=== PATIENT | male | born 1965 | race Caucasian/White ===

== ENCOUNTER 2023-09-02 17:47 | Emergency (ER) | payer MEDICAID, SELFPAY ==
[2023-09-02 17:53] VITALS: BP 134/80; PULSE 86; O2SAT 98
[2023-09-02 18:13] VITALS: BP 123/75; PULSE 73; RESP 20; TEMP 36.2; O2SAT 99; BMI 31.1
--- NOTE | 2023-09-02 18:19 | ED_ITS ---
HPI - General Adult General Chief complaint: General Medical Stated complaint: CC covid+ w/ cough Time Seen by Provider: 09/02/23 18:17 Source: patient Mode of arrival: ambulatory Limitations: no limitations History of Present Illness HPI narrative: Diagnosed with COVID last week at [facility]. States that he wants to be tested to see if he still has COVID as he is homeless and he is concerned about the public. He states he is concerned the COVID has settled into his lungs but denies any increased shortness of breath. He reports he is a smoker then he has had an increased cough, however; he denies any fevers, chills, chest pain. Related Data Allergies Allergy/AdvReac Type Severity Reaction Status Date / Time No Known Allergies Allergy Verified 09/02/23 18:17 Review of Systems Review of Systems: Yes all other systems are reviewed and are negative [facility] Social History Social History Advance Directives: No Advance Directives Information Provided: No Physical Exam ED Vital Signs: Vital Signs - 24 hr 09/02/23 18:13 Temperature 97.1 F Pulse Rate 73 Respiratory Rate 20 Blood Pressure 123/75 Pulse Oximetry 99 Oxygen Delivery Method Room Air BMI result Body Mass Index 31.1 Nursing notes and vital signs reviewed. GENERAL APPEARANCE: A&0 x 4, generally well appearing, no acute distress HENMT: Normal to inspection, atraumatic, face symmetrical. Normal external ears, nose, and oropharynx clear. EYE: PERRLA, EOM intact, structures appear normal NECK: Supple without lymphadenopathy. No stiffness or restricted ROM. CHEST: Normal to inspection HEART: Normal rate and regular rhythm, normal S1/S2, no M/R/G LUNGS: LS CTA, moving air well. Able to speak in complete sentences. No crackles, wheezes, or rhonchi auscultated ABDOMEN: Soft, nontender, nondistended. Normal bowel sounds noted BACK: No CVAT, no obvious deformity EXTREMITIES: Moving all extremities without difficulty. No cyanosis, clubbing, or edema. Normal capillary refill. NEUROLOGICAL: Alert and oriented, moving all 4 extremities with equal strength. CN not formally tested but appearing grossly intact. Observed to ambulate with normal gait. Cognition normal SKIN: Warm and dry without any lesions, rash, or visible sores PSYCH: Cooperative, normal affect, normal thought process Medical Decision Making Medical Decision Making MDM Narrative: Patient's symptoms are consistent with an upper respiratory infection with no evidence of pneumonia or sepsis based on HPI and PE. Patient educated that he may still be contagious and that he should remain cautious with good handwashing and wearing a mask when around others especially if he is concerned for others health. Patient is safe for discharge at this time with plan for [id number] Tylenol and/or NSAID such as ibuprofen or naproxen for fever/discomfort with dosing as per packaging. HPI, PE, diagnostics, and plan discussed with patient and family with no unanswered questions at this time. Strict return precautions given to return to the emergency department with new, worsening, or concerning emergent symptoms. Recommended to follow-up with there primary care provider in 24-48 hours for further treatment and management. Differential Diagnosis Differential Diagnoses: The differential diagnosis associated with the presentation includes But not limited to pneumonia, pneumothorax, pleurisy, upper respiratory infection, ACS, sepsis, malignancy Discharge Plan Discharge Clinical Impression: URI (upper respiratory infection) Patient Disposition: Home, Self-Care Instructions: Upper Respiratory Infection (ED) Referrals: [facility] [place] Group] [facility] [place] [facility] [Provider Group] [facility] [place] [facility] [Provider Group] Interventions: ED Discharge Assessment Last Done: 09/02/23 18:32 Discharge Date/Time: 09/02/23 18:58 Print Language: Somali
== END 2023-09-02 18:58 | disposition home or self-care (01) ==
LOC: HO.ED 18:33
PROVIDERS: Emergency Provider Student in an Organized Health Care Education/Training Program
DX: J06.9 Acute upper respiratory infection, unspecified (principal); R05.9 Cough, unspecified
CPT/HCPCS: 99282

== ENCOUNTER 2024-10-06 12:24 | Inpatient (IN) | payer MEDICAID, SELFPAY ==
--- OUTSIDE RECORDS SUMMARY | 2024-10-06 12:55 | XMS_ITS | Encounter Summary ---
Author Organization [employer] Address [address] [place] [address] Care Team Providers Care Bench Molder Name Role Phone Physician, No Pcp Primary Care Provider Unavaila ble Reason for Visit * Reason Comments Mental Health Problem Patient told polic e he was homicidal toward people in general - vague SI and fight with GF [place] Encounter Details Date Type Department Care Team (Late st Contact Info) Description 10/05/2024 9:19 PM EST - 10/06/2024 12:33 PM EST Emergency [facility] Emergency [address] [place] [phone] Melani Pfeiffer MD [address] [place] [address] Branden Stratton MD [address] [address] Suicidal ideation (Primary Dx); Alcohol abuse [facility]charge Disposition[facility] Social History Tobacco Use Types Packs/Day Years Used Date Smoking Tobacco: Every Day Smokeless Tobacco: Never Alcohol Use Standard Drinks/Week Comments Yes 0 (1 standard drink = 0.6 oz pur e alcohol) Sex and Gender Information Value Date Recorded Sex Assigned at Not on file Legal Sex Male 4:33 AM EST Gender Identity Not on file Sexual Orientation Not on file documented as of this encounter Last Filed Vital Signs Vital Sign Reading Time Taken Comments Blood Pressure 138/82 10/06/2024 4:28 AM EST Pulse 86 10/06/2024 4:28 AM EST Temperature 36.6 ??C (97.9 ??F) 10/06/2024 4:28 AM ES T Respiratory Rate 16 10/06/2024 4:28 AM EST Oxygen Saturation 100% 10/06/2024 4:28 AM EST Inhaled Oxygen Concentration - - Weight 83.9 kg (185 lb) 10/05/2024 10:57 PM EST Height 172.7 cm (5' 8 ) 10/05/2024 10:57 PM EST Body Mass Index 28.13 10/05/2024 10:57 PM EST documented in this encounter Functional Status * Are you deaf or do you have serious difficulty hearing? Answer Date of Assessment Author No 10/06/2024 4:16 AM Wiley Srivastava RN * Are you blind or do you have serious difficulty seeing, even when wearing glasses? Answer Date of Assessment Author No 10/06/2024 4:16 AM Coleman Srivastava RN * Do you have serious difficulty walking or climbing stairs? Answer Date of Assessment Author No 10/06/2024 4:16 AM Wiley Srivastava RN * Do you have serious difficulty dressing or bathing? Answer Date of Assessment Author No 10/06/2024 4:16 AM Wiley Srivastava RN * Because of a physical, mental, or emotional condition, do you have serious difficulty doing errandsalone such as visiting the doctor? Answer Date of Assessment Author No 10/06/2024 4:16 AM Wiley Srivastava RN documented as of this encounter Mental Status * Because of a physical, mental, or emotional condition, do you have serious difficulty concentrating, remembering, or making decisions? (5 years old or older) Answer Entry Date Author No 10/06/2024 4:16 AM Wiley Srivastava RN documented in this encounter Discharge Instructions * Discharge Instructions* Branden Stratton MD - 10/06/2024 12:01 PM EST Section 12 * Attachments The following attachments cannot be sent through Care Everywhere. * Suicidal Thoughts (Venezuelan) * Alcohol: Taking Action: Video (Venezuelan) documented in this encounter Medications at Time of Discharge prazosin (MINIPRESS) 2 mg capsule Take 1 capsule (2 mg total) by mouth at bedtime. 09/14/2024 Ventolin HFA 90 mcg/actuation inhaler Inhale 2 puffs by mouth every 4 (four) hours if needed. 08/27/2024 atorvastatin (LIPITOR) 20 mg tablet Take 1 tablet (20 mg total) by mouth at bedtime. QUEtiapine (SEROquel) 100 mg tablet Take 1 tablet (100 mg total) by mouth at bedtime. documented as of this encounter Discharge Disposition Disposition Code Departure Means Destination Comment [facility] documented in this encounter Progress Notes * Ellen Roa RN - 10/06/2024 10:34 AM EST Spoke with [facility] regards to accepting patient. They would like the patient to have an EKG before being accepted. Once EKG is obtained and looks good, they will accept the patient anytime after 1130a. * Kristi Singh - 10/06/2024 10:02 AM EST Patient has been accepted to [facility], unit M3, by Dr Saul Villasenor for today 10/06/24.Time will be determined during nurse to nurse. * KELLIE Worthington - 10/05/2024 8:49 PM EST Emergency Medicine Note Patient Name: Allan Guillen Initial Evaluation: 10/05/2024 : 1965 Patient's PCP: No Pcp Physician Emergency Physician: KELLIE Worthington History of Present Illness Chief Complaint: Chief Complaint Patient presents with Mental Health Problem Patient told police he was homicidal toward people in general - vague SI and fight with GF - drinking at the [place] HPI: 59-year-old male with a history of EtOH abuse and hyperlipidemia presenting for evaluation of vague suicidal ideation. States that he has had an extremely difficult life and has been having thoughts of harming himself though he has no specific plan. He does state that he was drinking earlier, denies any drug use. He is very frustrated because he is trying to get papers from [place] that martín john has been unable to obtain. He has no physical complaints at this time ROS: I have performed a ROS with the pertinent positives and negatives documented in the history ofpresent illness. Previous History Past Medical History: Diagnosis Date ETOH abuse DX:ETOH abuse No past surgical history on file. Social History Tobacco Use Smoking status: Every Day Smokeless tobacco: Never Substance Use Topics Alcohol use: Yes No family history on file. has No Known Allergies. No current facility-administered medications on file prior to encounter. Current Outpatient Medications on File Prior to Encounter Medication Sig Dispense Refill prazosin (MINIPRESS) 2 mg capsule Take 1 capsule (2 mg total) by mouth at bedtime. Ventolin HFA 90 mcg/actuation inhaler Inhale 2 puffs by mouth every 4 (four) hours if needed. atorvastatin (LIPITOR) 20 mg tablet Take 1 tablet (20 mg total) by mouth at bedtime. QUEtiapine (SEROquel) 100 mg tablet Take 1 tablet (100 mg total) by mouth at bedtime. Physical Exam ED Triage Vitals [10/05/24 2257] Temp Heart Rate Resp BP 36.7 ??C (98 ??F) 93 18 (!) 148/81 SpO2 Temp Source Heart Rate Source Patient Position 100 % Oral Monitor Sitting BP Location FiO2 (%) Right arm -- General: Well-appearing, well nourished, in no acute distress HEENT: Speaking clear full sentences, handling secretions well neck: Supple, full range of motion Chest: No increased respiratory effort or accessory muscle use extremities: Freely moving extremities, ambulating independently without difficulty skin: Warm and dry Neuro: Alert and oriented, no focal deficits Results Labs Reviewed ETHANOL - Abnormal Result Value Ethanol Level 142 (*) ACETAMINOPHEN LEVEL - Abnormal Acetaminophen Level <2.0 (*) SALICYLATE LEVEL - Abnormal Salicylate Level <1.7 (*) CBC WITH AUTO DIFFERENTIAL - Abnormal WBC 5.5 RBC 4.00 (*) Hemoglobin 13.3 (*) Hematocrit 37.9 (*) MCV 94.0 MCH 33.0 (*) MCHC 35.1 RDW 12.5 Platelets 202 MPV 9.5 NRBC 0.0 NRBC Absolute 0.00 Neutrophils Relative 37.6 Lymphocytes Relative 46.8 Monocytes Relative 12.1 Eosinophils Relative 2.7 Basophils Relative 0.4 Immature Granulocytes Relative 0.4 Neutrophils Absolute 2.09 Lymphocytes Absolute 2.59 Monocytes Absolute 0.67 Eosinophils Absolute 0.15 Basophils Absolute 0.02 Immature Granulocytes Absolute 0.02 COMPREHENSIVE METABOLIC PANEL - Normal Sodium 139 Potassium 4.0 Chloride 108 CO2 25 Anion Gap 6 Glucose 92 BUN 19 Creatinine 0.75 eGFR 104 BUN/Creatinine Ratio 25.3 Calcium 9.2 AST (SGOT) 27 ALT (SGPT) 32 Alkaline Phosphatase 96 Total Protein 7.7 Albumin 4.0 Total Bilirubin 0.4 DRUG ABUSE SCREEN 8A PANEL, URINE - Normal Amphetamine Screen, Ur Negative Barbiturate Screen, Ur Negative Benzodiazepine Screen, Ur Negative Cocaine Screen, Ur Negative Opiate Screen, Ur Negative Cannabinoid (THC) Screen, Ur Negative Oxycodone Screen, Ur Negative Fentanyl, Ur Negative Narrative: Assay cutoffs: Amphetamines 1000 ng/mL Barbiturates 200 ng/mL Benzodiazepines 200 ng/mL Cocaine 300 ng/mL Fentanyl 1 ng/mL Opiates 300 ng/mL Oxycodone 100 ng/mL THC 50 ng/mL Semi-quantitative assay for screening purposes only. Unconfirmed screening result should not be used for non-medical purposes. *ALTERNATE METHOD CONFIRMATION DONE UPON REQUEST ONLY* BUPRENORPHINE SCREEN, URINE - Normal Buprenorphine Screen Urine Negative Narrative: Assay cutoff 5 ng/mL Semi-quantitative assay for screening purposes only. Unconfirmed screening result should not be used for non-medical purposes. *ALTERNATE METHOD CONFIRMATION DONE UPON REQUEST ONLY* PHENCYCLIDINE, URINE - Normal PCP Scrn, Ur Negative METHADONE SCREEN, URINE - Normal Methadone Screen, Urine Negative CBC AND DIFFERENTIAL Narrative: The following orders were created for panel order CBC and differential. Procedure Abnormality Status --------- ------ CBC auto differential[[id number]] Abnormal Final result Please view results for these tests on the individual orders. Abnormal Labs Reviewed ETHANOL - Abnormal; Notable for the following components: Result Value Ethanol Level 142 (*) All other components within normal limits ACETAMINOPHEN LEVEL - Abnormal; Notable for the following components: Acetaminophen Level <2.0 (*) All other components within normal limits SALICYLATE LEVEL - Abnormal; Notable for the following components: Salicylate Level <1.7 (*) All other components within normal limits CBC WITH AUTO DIFFERENTIAL - Abnormal; Notable for the following components: RBC 4.00 (*) Hemoglobin 13.3 (*) Hematocrit 37.9 (*) MCH 33.0 (*) All other components within normal limits No orders to display I have discussed the incidental/abnormal imaging and/or lab abnormalities with the patient and haveinstructed them the need for further evaluation and workup with their primary care doctor. I have provided the patient with a paper copy of the abnormality. The laboratory results, imaging results and other diagnostic exam results were reviewed in the EMR. EKG Interpretation Critical Care Time None ? Medical Decision Making Medications - No data to display ED Observation Note Encounter: 10/06/2024 4:22 AM Vital Signs reviewed. Crisis evaluation is pending. No medical complaints at this time. Reviewed all pertinent PMHx, SHx, and patient medication. FMHx: Comments: Patient seen and evaluated, vitals reviewed, labs reviewed and reassuring, patient has nophysical complaints, he is presenting for evaluation of increased depression, racing thoughts and vague suicidal ideation without any formal plan. He is calm and cooperative currently, will remain oncontrol continuous 4-1 observation pending crisis evaluation in the morning. He is medically cleared at this time. Anticipate signout at change of shift approximately 7 AM pending this crisis evaluation. ED Course as of 10/06/24647Oct 06, 2024 06 Patient was evaluated by N in the community, came in on a section 12 as a bed search for inpatient psychiatric placement. [LQ] ED Course User Index [LQ] KELLIE Worthington Clinical Impressions as of 10/06/24 0648 Suicidal ideation Procedures Procedures Diagnosis 1. Suicidal ideation Disposition Data Unavailable ED Prescriptions None Physician Attestation KELLIE Worthington 10/06/24422 KELLIE Worthington 10/06/24422 KELLIE Worthington 10/06/24647 Cosigned by Melani Pfeiffer MD at 10/06/2024 7:41 AM EST documented in this encounter Consult Notes * Inez Bass LCSW - 10/06/2024 6:39 AM ESTAssociated Order(s): IP CONSULT TO POWER TRANSFORMER REPAIRER; IP CONSULT TO POWER TRANSFORMER REPAIRER Patient was assessed in the community by [facility] crisis and found appropriate for Inpatient level of care; evaluation will be faxed upon completion. [facility] will initiate the bed search. documented in this encounter Plan of Treatment Pending Results Name Type Priority Associated Diagnoses Date /Time ECG 12 lead ECG STAT 10/06/2024 10 :50 AM EST documented as of this encounter Procedures Procedure Name Priority Date/Time Associated Diagnosis Comments ECG 12-LEAD STAT 10/06/2024 10:50 AM EST TIGER TOP URINE TUBE Routine 10/05/2024 10:52 PM EST DRUG ABUSE SCREEN 8A PANEL, URINE STAT 10/05/2024 10:52 PM EST BUPRENORPHINE SCREEN, URINE STAT 10/05/2024 10:52 PM EST METHADONE SCREEN, URINE STAT 10/05/2024 10:52 PM EST EXTRA TUBES Routine 10/05/2024 10:52 PM EST CBC WITH AUTO DIFFERENTIAL STAT 10/05/2024 10:52 PM EST PHENCYCLIDINE, URINE STAT 10/05/2024 10:52 PM EST CBC AND DIFFERENTIAL STAT 10/05/2024 10:52 PM EST ETHANOL STAT 10/05/2024 10:52 PM EST ACETAMINOPHEN LEVEL STAT 10/05/2024 1 0:52 PM EST SALICYLATE LEVEL STAT 10/05/2024 10:5 2 PM EST COMPREHENSIVE METABOLIC PANEL STAT 10/05/2024 10:52 PM EST documented in this encounter Results * [place] top urine tube (10/05/2024 10:52 PM EST) [facility] Extra Tube Hold for add-ons. 10/06/2024 1:10 AM EST [facility] Comment:Auto resulted. Urine Urine specimen obtained by clean catch procedure / Unknown Non-blood Collection / Unknown 10/05/2024 10:52 PM EST 10/05/2024 11:01 PM EST us [facility] URINE ORDERABLES Final Resu lt [facility] [address] [place] [address], [place] [phone] * (ABNORMAL) CBC auto differential (10/05/2024 10:52 PM EST) [facility] WBC 5.5 4.8 - 10.8 K/mcL LAB HEMETOLOGY METHOD 10/05/2024 11:05 PM [facility] RBC 4.00(L) 4.50 - 5.50 M/mcL LAB HEMETOLOGY METHOD 10/05/2024 11:05 PM [facility] Hemoglobin 13.3(L) 13.5 - 17.5 g/dL LAB HEMETOLOGY METHOD 10/05/2024 11:05 PM [facility] Hematocrit 37.9(L) 42.0 - 54.0 % LAB HEMETOLOGY METHOD 10/05/2024 11:05 PM [facility] MCV 94.0 79.0 - 98.0 FL LAB HEMETOLOGY METHOD 10/05/2024 11:05 PM [facility] MCH 33.0(H) 27.0 - 32.0 pcg LAB HEMETOLOGY METHOD 10/05/2024 11:05 PM [facility] MCHC 35.1 32.0 - 37.0 g/dL LAB HEMETOLOGY METHOD 10/05/2024 11:05 PM [facility] RDW 12.5 11.0 - 15.0 % LAB HEMETOLOGY METHOD 10/05/2024 11:05 PM [facility] Platelets 202 130 - 400 K/mcL LAB HEMETOLOGY METHOD 10/05/2024 11:05 PM [facility] MPV 9.5 7.0 - 11.0 FL LAB HEMETOLOGY METHOD 10/05/2024 11:05 PM [facility] NRBC 0.0 <1.0 % LAB HEMETOLOGY METHOD 10/05/2024 11:05 PM [facility] NRBC Absolute 0.00 <0.10 K/mcL LAB HEMETOLOGY METHOD 10/05/2024 11:05 PM [facility] Neutrophils Relative 37.6 % LAB HEMETOLOGY METHOD 10/05/2024 11:05 PM [facility] Lymphocytes Relative 46.8 % LAB HEMETOLOGY METHOD 10/05/2024 11:05 PM [facility] Monocytes Relative 12.1 % LAB HEMETOLOGY METHOD 10/05/2024 11:05 PM [facility] Eosinophils Relative 2.7 % LAB HEMETOLOGY METHOD 10/05/2024 11:05 PM [facility] Basophils Relative 0.4 % LAB HEMETOLOGY METHOD 10/05/2024 11:05 PM [facility] Immature Granulocytes Relative 0.4 % LAB HEMETOLOGY METHOD 10/05/2024 11:05 PM [facility] Neutrophils Absolute 2.09 1.50 - 7.00 K/mcL LAB HEMETOLOGY METHOD 10/05/2024 11:05 PM [facility] Lymphocytes Absolute 2.59 1.00 - 5.00 K/mcL LAB HEMETOLOGY METHOD 10/05/2024 11:05 PM EST [facility] Monocytes Absolute 0.67 0.20 - 1.00 K/mcL LAB HEMETOLOGY METHOD 10/05/2024 11:05 PM EST [facility] Eosinophils Absolute 0.15 0.00 - 0.50 K/mcL LAB HEMETOLOGY METHOD 10/05/2024 11:05 PM EST [facility] Basophils Absolute 0.02 0.00 - 0.20 K/[facility] LAB HEMETOLOGY METHOD 10/05/2024 11:05 PM [facility] Immature Granulocytes Absolute 0.02 0.00 - 0.03 K/[facility] LAB HEMETOLOGY METHOD 10/05/2024 11:05 PM [facility] Blood Venous blood specimen / Unknown Venipuncture / Unknown 10/05/2024 10:52 PM EST 10/05/2024 11:00 PM EST us [facility] BLOOD ORDERABLES Final Resu lt [facility] [address] [place] [address], * Methadone, urine (10/05/2024 10:52 PM EST) Methadone Screen, Urine Negative Negative LAB CHEMISTRY METHOD 10/05/2024 11:26 PM EST [facility] Comment: Assay cutoff 300 ng/mL Semi-quantitative assay for screening purposes only. Unconfirmed screening result should not be used for non-medical purposes. *ALTERNATE METHOD CONFIRMATION DONE UPON REQUEST ONLY* Urine Urine specimen obtained by clean catch procedure / Unknown Non-blood Collection / Unknown 10/05/2024 10:52 PM EST 10/05/2024 11:00 PM EST us [facility] URINE ORDERABLES Final Resu lt Performing Organization Address City/[facility]/ZIP Co de Phone Number [facility] [address] [place] [address], [place] [phone] * Phencyclidine, urine (10/05/2024 10:52 PM EST) PCP Scrn, Ur Negative Negative LAB CHEMISTRY METHOD 10/05/2024 11:26 PM EST [facility] Comment: Assay cutoff 25 ng/mL Semi-quantitative assay for screening purposes only. Unconfirmed screening result should not be used for non-medical purposes. *ALTERNATE METHOD CONFIRMATION DONE UPON REQUEST ONLY* Urine Urine specimen obtained by clean catch procedure / Unknown Non-blood Collection / Unknown 10/05/2024 10:52 PM EST 10/05/2024 11:00 PM EST us [facility] URINE ORDERABLES Final Resu lt Performing Organization Address [facility] de Phone Number [facility] [address] [place] [address], [place] [phone] * Buprenorphine screen, urine (10/05/2024 10:52 PM EST) Buprenorphine Screen Urine Negative Negative LAB CHEMISTRY METHOD 10/05/2024 11:26 PM EST [facility] Urine Urine specimen obtained by clean catch procedure / Unknown Non-blood Collection / Unknown 10/05/2024 10:52 PM EST 10/05/2024 11:00 PM EST Narrative [facility] - 10/05/2024 11:26 PM EST Assay cutoff 5 ng/mL Semi-quantitative assay for screening purposes only. Unconfirmed screening result should not be used for non-medical purposes. *ALTERNATE METHOD CONFIRMATION DONE UPON REQUEST ONLY* us [facility] URINE ORDERABLES Final Resu lt Performing Organization Address [facility]/ZIP Co de Phone Number [facility] [address] [place] [address], [place] [phone] * Drug abuse screen 8a panel, urine (10/05/2024 10:52 PM EST) [facility] Amphetamine Screen, Ur Negative Negative LAB CHEMISTRY METHOD 10/05/2024 11:26 PM [facility] Comment:Certain OTC medicati ons containing ephedrine, phenylephrine, pseudoephedrine and phenylpropanolamine can cause false positive results. Barbiturate Screen, Ur Negative Negative LAB CHEMISTRY METHOD 10/05/2024 11:26 PM [facility] Benzodiazepine Screen, Ur Negative Negative LAB CHEMISTRY METHOD 10/05/2024 11:26 PM [facility] Cocaine Screen, Ur Negative Negative LAB CHEMISTRY METHOD 10/05/2024 11:26 PM [facility] Opiate Screen, Ur Negative Negative LAB CHEMISTRY METHOD 10/05/2024 11:26 PM [facility] Cannabinoid (THC) Screen, Ur Negative Negative LAB CHEMISTRY METHOD 10/05/2024 11:26 PM [facility] Comment:Specimens from patie nts taking pantoprazole sodium (Protonix) have been shown to produce false positive results. Oxycodone Screen, Ur Negative Negative LAB CHEMISTRY METHOD 10/05/2024 11:26 PM [facility] Fentanyl, Ur Negative Negative LAB CHEMISTRY METHOD 10/05/2024 11:26 PM [facility] Urine Urine specimen obtained by clean catch procedure / Unknown Non-blood Collection / Unknown 10/05/2024 10:52 PM EST 10/05/2024 11:[address] [facility] - 10/05/2024 11:26 PM EST Assay cutoffs: Amphetamines ? 1000 ng/mL Barbiturates ?200 ng/mL Benzodiazepines ?? 200 ng/mL Cocaine ? 300 ng/mL Fentanyl ?1 ng/mL Opiates ? 300 ng/mL Oxycodone ? 100 ng/mL THC ?50 ng/mL Semi-quantitative assay for screening purposes only. Unconfirmed screening result should not be used for non-medical purposes. *ALTERNATE METHOD CONFIRMATION DONE UPON REQUEST ONLY* [facility] URINE ORDERABLES Final Resu lt Performing Organization Address [facility] de Phone Number [facility] [address] [place] [address], * (ABNORMAL) Salicylate level (10/05/2024 10:52 PM EST) Salicylate Level <1.7(L) 2.0 - 29.0 mg/dL LAB CHEMISTRY METHOD 10/05/2024 11:26 PM EST [facility] Blood Venous blood specimen / Unknown Venipuncture / Unknown 10/05/2024 10:52 PM EST 10/05/2024 11:00 PM EST [facility] BLOOD ORDERABLES Final Resu lt Performing Organization Address [facility] Phone Number [facility] [address] [place] [address], * (ABNORMAL) Acetaminophen level (10/05/2024 10:52 PM EST) Acetaminophen Level <2.0(L) 10.0 - 30.0 mcg/mL LAB CHEMISTRY METHOD 10/05/2024 11:30 PM EST [facility] Blood Venous blood specimen / Unknown Venipuncture / Unknown 10/05/2024 10:52 PM EST 10/05/2024 11:00 PM EST [facility] BLOOD ORDERABLES Final Resu lt Performing Organization Address [facility]/ZIP Co de Phone Number [facility] [address] [place] [address], [place] [phone] * (ABNORMAL) Ethanol (10/05/2024 10:52 PM EST) Pathologist [facility] Ethanol Level 142(H) 0 - 10 mg/dL LAB CHEMISTRY METHOD 10/05/2024 11:26 PM EST [facility] Blood Venous blood specimen / Unknown Venipuncture / Unknown 10/05/2024 10:52 PM EST 10/05/2024 11:00 PM EST us [facility] BLOOD ORDERABLES Final Resu lt [facility] [address] [place] [address], [place] [phone] * Comprehensive metabolic panel (10/05/2024 10:52 PM EST) [facility] Sodium 139 133 - 145 mmol/L LAB CHEMISTRY METHOD 10/05/2024 11:26 PM [facility] Potassium 4.0 3.5 - 5.5 mmol/L LAB CHEMISTRY METHOD 10/05/2024 11:26 PM [facility] Chloride 108 96 - 110 mmol/L LAB CHEMISTRY METHOD 10/05/2024 11:26 PM [facility] CO2 25 21 - 32 mmol/L LAB CHEMISTRY METHOD 10/05/2024 11:26 PM [facility] Anion Gap 6 3 - 11 LAB CHEMISTRY METHOD 10/05/2024 11:26 PM [facility] Glucose 92 70 - 100 mg/dL LAB CHEMISTRY METHOD 10/05/2024 11:26 PM [facility] BUN 19 5 - 25 mg/dL LAB CHEMISTRY METHOD 10/05/2024 11:26 PM [facility] Creatinine 0.75 0.70 - 1.30 mg/dL LAB CHEMISTRY METHOD 10/05/2024 11:26 PM [facility] eGFR 104 >=60 mL/min/1. 73m2 LAB CHEMISTRY METHOD 10/05/2024 11:26 PM [facility] Comment:Calculation based on the??Chronic Kidney Disease Epidemiology Collaboration (CKD-EPI) equation refit??without adjustment for race. BUN/Creatinine Ratio 25.3 LAB CHEMISTRY METHOD 10/05/2024 11:26 PM [facility] Calcium 9.2 8.5 - 10.5 mg/dL LAB CHEMISTRY METHOD 10/05/2024 11:26 PM [facility] AST (SGOT) 27 10 - 42 unit/L LAB CHEMISTRY METHOD 10/05/2024 11:26 PM [facility] ALT (SGPT) 32 10 - 60 unit/L LAB CHEMISTRY METHOD 10/05/2024 11:26 PM [facility] Alkaline Phosphatase 96 42 - 121 unit/L LAB CHEMISTRY METHOD 10/05/2024 11:26 PM [facility] Total Protein 7.7 6.0 - 8.0 g/dL LAB CHEMISTRY METHOD 10/05/2024 11:26 PM [facility] Albumin 4.0 3.2 - 5.0 g/dL LAB CHEMISTRY METHOD 10/05/2024 11:26 PM [facility] Total Bilirubin 0.4 0.0 - 1.4 mg/dL LAB CHEMISTRY METHOD 10/05/2024 11:26 PM [facility] Blood Venous blood specimen / Unknown Venipuncture / Unknown 10/05/2024 10:52 PM EST 10/05/2024 11:00 PM EST us [facility] BLOOD ORDERABLES Final Resu lt [facility] [address] [place] [address], documented in this encounter Visit Diagnoses Diagnosis Suicidal ideation- Primary Alcohol abuse Nondependent alcohol abuse, unspecified drinking behavior documented in this encounter Historical Medications * This list may reflect changes made after this encounter. QUEtiapine (SEROquel) 100 mg tablet Take 1 tablet (100 mg total) by mouth at bedtime. prazosin (MINIPRESS) 2 mg capsule Take 1 capsule (2 mg total) by mouth at bedtime. 09/14/2024 atorvastatin (LIPITOR) 20 mg tablet Take 1 tablet (20 mg total) by mouth at bedtime. Ventolin HFA 90 mcg/actuation inhaler Inhale 2 puffs by mouth every 4 (four) hours if needed. 08/27/2024 added in this encounter Orders Diet Count Last Ordered Date First Orde red Date ADULT DIET 1 10/05/2024 Consult Count Last Ordered Date First Orde red Date IP CONSULT TO POWER TRANSFORMER REPAIRER 2 10/06/2024 Precaution Count Last Ordered Date First Orde red Date SUICIDE PRECAUTIONS 1 10/05/2024 Privilege Level Count Last Ordered Date First O rdered Date PATIENT BASTING PULLER 1 10/05/2024 documented in this encounter Care Teams Bench Molder Relationship Specialty Start Date End Date Physician, No Pcp PCP - General 09/04/24 documented as of this encounter
--- OUTSIDE RECORDS SUMMARY | 2024-10-06 12:55 | XMS_ITS | Clinical Summary ---
Author Organization [facility] Address [address] [place] [address] Care Team Providers Care Charter Boat Captain Name Role Phone Harman Stein PARKING REGULATION ENFORCEMENT OFFICER-C Primary Care Provider [phone] Source Comments PLEASE NOTE, if this patient is a minor, it may be UNLAWFUL to discuss sensitive information that is contained in these records (such as FAMILY PLANNING, MENTAL HEALTH or SUBSTANCE ABUSE) with the minor patient's parent or other person without the patient's specific authorization.[facility] Allergies No known active allergies Medications buPROPion SR (WELLBUTRIN SR) 150 mg 12 hr tabletIndications: 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),Tobacco use Take 1 Tablet by mouth 2 (two) times daily 60 Tablet 2 12/24/19 24 Active nicotine, polacrilex, (NICORETTE) 2 mg gumIndications:Tob acco use as needed for cravings - Weeks 1-6: Chew 1 piece of gum every 1-2 hours. Weeks 7-9: Chew 1 piece of gum every 2-4 hours. Weeks 10-12: Chew 1 piece of gum every 4-8 hours. (minimum: 9 pieces/day for first 6 weeks; maximum: 24 pieces/day during entire regimen 110 Each 3 03/28/20 24 Active atorvastatin (LIPITOR) 20 mg tabletIndications: Mixed hyperlipidemia Take 1 Tablet by mouth nightly at bedtime 90 Tablet 1 04/04/20 24 Active risperiDONE (RISPERDAL) 1 mg tablet Take 1 mg by mouth nightly at bedtime 04/28/20 24 Active hydrOXYzine HCL (ATARAX) 50 mg tablet Take 50 mg by mouth 2 (two) times daily as needed 01/17/20 24 Active benztropine (COGENTIN) 0.5 mg tablet Take 0.5 mg by mouth nightly at bedtime 04/28/20 24 Active QUEtiapine (SEROQUEL) 100 mg tabletIndications: Severe episode of recurrent major depressive disorder, 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 90 Capsule 1 03/21/20 24 025 Discontinued Active Problems Problem Noted Date Diagnosed Date Suicidal ideation 06/09/2024 Overview (06/09/2024): 05/19/24 [facility] for alcohol intoxication and SI; cleared for discharge by crisis once sober. 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) (Primary Dx); Alcohol use disorder - Severe; Distressed about housing issues; Insomnia due to other mental disorder; 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) 09/06/2024 Travel 09/05/2024 Interim Notes [address] [phone] Callie Galicia 08/29/2024 Interim Notes [address] [phone] Callie Galicia 08/28/2024 Interim Notes [address] [phone] Callie Galicia 08/24/2024 Travel 08/04/2024 Interim Notes [address] [phone] Callie Galicia 08/03/2024 / INTERIM [address] [phone] Sasha Linares, PMHNP Alcohol use disorder - Severe (Primary Dx); 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) 07/12/2024 1:00 PM EST / Visits [address] [phone] Garrett Short, PARKING REGULATION ENFORCEMENT OFFICER Severe episode of recurrent major depressive disorder, 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) (Primary Dx); Alcohol use disorder - Severe; Distressed about housing issues; Insomnia due to other mental disorder 07/12/2024 Travel 07/10/2024 2:30 PM EST / Visits [address] [phone] Dawn Kyle, RN Deborah Vázquez [place] Alcohol use disorder - Severe (Primary Dx); 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) 07/10/2024 Travel from Last 3 Months Immunizations Name Administration Dates Next Due Flu, Cell Culture based, Multi Dose, 6m+, Flucel vax 09/15/2019 Flu, Preservative Free 08/31/2023,08/27/2020 Moderna COVID-19 Vaccine, re d cap blue label, 12+ Primary Series 12/13/2021 TDAP 12/24/2023 ZOSTER VACCINE, RECOMBINANT (SHINGRIX) Social History Tobacco Use Types Packs/Day Years Used Date Smoking Tobacco: Every Day Cigarettes 1 20.8 Started: 12/24/2003 Passive Smoke Exposure: Never Smokeless Tobacco: Never Tobacco Cessation:Ready to Q uit: Yes; Counseling Given: Yes Alcohol Use Standard Drinks/Week Comments Yes 22 (1 standard drink = 0.6 oz pu re alcohol) almost daily Social Connections Answer Date Recorded Connectedness 2 12/13/2023 Financial Resource Strain Answer Date R ecorded Financial Resource Strain 2 2023 Stress Answer Date Recorded Stress 2 12/13/2023 Physical Activity Answer Date Recorded Physical Activity 0 02/26/2020 Food Insecurity Answer Date Recorded Food 2 12/13/2023 Transportation Needs Answer Date Record ed Transportation 2 12/13/2023 Housing Stability Answer Date Recorded Housing 2 12/13/2023 Safety and Environment Answer Date Andreas rded Safety 1 12/13/2023 Utilities Answer Date Recorded Utilities 2 12/13/2023 Employment Answer Date Recorded Stress 0 12/13/2023 Sex and Gender Information Value Date Recorded Sex Assigned at Male 06/11/2020 3:04 PM PDT Legal Sex Male 7:07 PM PDT Gender Identity Male 06/11/2020 3:04 PM PDT Sexual Orientation Don't know 06/11/2020 3: 04 PM PDT COVID-19 Exposure Response Date Recorded In the last 10 days, have yo u been in contact with someone who was confirmed or suspected to have Coronavirus/COVID-19? Unable to assess 09/06/2024 1:29 PM EST Last Filed Vital Signs Vital Sign Reading Time Taken Comments Blood Pressure 111/70 07/10/2024 2:50 PM EST Pulse 88 07/10/2024 2:50 PM EST Temperature 36.7 ??C (98.1 ??F) 03/28/2024 2:37 PM ED T Respiratory Rate 18 03/28/2024 2:37 PM EDT Oxygen Saturation 96% 03/28/2024 2:37 PM EDT Inhaled Oxygen Concentration - - Weight 86.5 kg (190 lb 9.6 oz) 03/28/2024 2:37 P M EDT Height 162.6 cm (5' 4 ) 07/12/2020 10:07 AM EST Body Mass Index 32.72 07/12/2020 10:07 AM EST Plan of Treatment Upcoming Encounters Date Type Department Care Team (Late st Contact Info) Description 11/23/2024 9:50 AM EDT Interim Notes [facility] [address] [place] [phone] 11/23/2024 10:20 AM EDT Office Visit [facility] [address] [place] [phone] Harman Stein FNP-Minnie [address] [place] [address] 11/23/2024 10:50 AM EDT Interim Notes [facility] [address] [place] [phone] Health Maintenance Due Date Last Done Comments Dental Perio Charting 1965 Imm-Hepatitis A (1 of 2 - Ri sk 2-dose series) 1984 Imm-Hepatitis B (1 of 3 - 19 + 3-dose series) 1984 Imm-Pneumococcal (1 of 2 - PCV) 1984 CT Colonography 2010 Colonoscopy 2010 Colorectal Cancer Screening 2010 FIT/gFOBT 2010 Fecal DNA 2010 Flexible Sigmoidoscopy 2010 Lung Cancer Screening 2015 Imm-Zoster, Recombinant (2 of 2) 02/18/2024 12/24/19 [id number] ( season) 2024 10/30/2023, 12/13/2021, 02/14/2021, Additional history exists Imm-Influenza (#1) 2024 08/31/2023, 0 08/27/2020, 09/15/2019 Alcohol and Drug Screen 08/23/2024 06/16/20 24, 12/24/2023, 06/11/2020 Depression Monitoring 09/16/2024 06/16/2024 , 12/24/2023, 06/11/2020 Annual Preventive Care Visit 12/23/2024 12/24/2023, 06/11/2020 LTBI Screening (#1) 12/23/2024 12/24/2023 Dental BW 02/10/2025 02/09/2024, 05/24, 02/10/2022 Dental Examination 02/10/2025 02/09/2024, 02/10/2022 Dental Prophy 02/10/2025 02/09/2024, 06/14/2023 Diabetes Screening 03/28/2025 03/28/2024, 0 03/28/2024, 12/24/2023, Additional history exists Lipid Screening 03/28/2025 03/28/2024, 05/0 10/2023, 07/12/2020, Additional history exists Tobacco Cessation Counseling (#1) 03/28/2025 024, 12/24/2023 Hypertension Screening (#1) 07/10/2025 Dental FMX/Pano 02/12/2027 02/10/2022 Imm-DTaP/Tdap/Td (2 - Td or Tdap) 12/23/2033 HIV Screening Completed 12/24/2023, 07/12/2020 Hepatitis C Screening Completed 12/24/2023 , 07/12/2020, 07/12/2020, Additional history exists Procedures Procedure Name Priority Date/Time Associated Diagnosis Comments DRUG MONITORING TEMPLATE Routine 07/10/2024 2:50 PM EST DRUG MONITORING, PANEL 8 WITH CONFIRMATION, URINE Routine 07/10/2024 2:50 PM EST Alcohol use disorder - Severe DRUG MONITORING, FENTANYL, WITH CONFIRMATION, URINE Routine 07/10/2024 2:50 PM EST Alcohol use disorder - Severe DRUG MONITORING, BARBITURATES, WITH CONFIRMATION, URINE Routine 07/10/2024 2:50 PM EST Alcohol use disorder - Severe COMPREHENSIVE METABOLIC PANEL Routine 03/28/2024 3:21 PM EDT Alcohol use disorder LIPID PANEL Routine 03/28/2024 3:21 PM EDT Alcohol use disorder BITEWINGS - FOUR RADIOGRAPHIC IMAGES Routine 02/09/2024 1:40 PM EDT Caries Fracture of crown, enamel, and dentin of tooth without pulp exposure Full PROPHYLAXIS - ADULT Routine 02/09/2024 1:40 PM EDT Caries Fracture of crown, enamel, and dentin of tooth without pulp exposure Full PERIODIC ORAL EVALUATION ESTABLISHED PATIENT Routine 02/09/2024 1:40 PM EDT Caries Fracture of crown, enamel, and dentin of tooth without pulp exposure HIV 1/2 AG & AB W/RFLX (4TH GEN) Routine 12/24/2023 2:07 PM EDT Homelessness Alcohol use disorder QUANTIFERON-TB GOLD PLUS Routine 12/24/2023 2:07 PM EDT Homelessness Tobacco use ACUTE HEPATITIS PANEL W/RFLX Routine 12/24/2023 2:07 PM EDT Homelessness Alcohol use disorder INTRAORAL - COMP SERIES OF RADIOGRAPHIC IMAGES Routine 02/10/2022 11:00 AM EDT Gingivitis, chronic, plaque induced from Last 3 Months or Most Recently Relevant to Health Maintenance Results * DRUG MONITORING TEMPLATE (07/10/2024 2:50 PM EST) Notes and Comments See Note Q [employer] Comment: This drug testing is for medical treatment only. Analysis was performed as non-forensic testing and these results should be used only by healthcare providers to render diagnosis or treatment, or to monitor progress of medical conditions. Alcohol Metab Notes: Ethylglucuronide, Ethyl sulfate detected is consistent with exposure to alcohol. LDT Notes: Confirmation tests were developed and their analytical performance characteristics have been determined by [employer]. It has not been cleared or approved by the FDA. This assay has been validated pursuant to the CLIA regulations and is used for clinical purposes. Healthcare Providers needing Interpretation assistance, please contact us at [phone] ( ) M-F, 8am to 10pm EST 07/10/2024 2:50 PM EST 07/11/2024 9:38 AM EST Harman Stein PARKING REGULATION ENFORCEMENT OFFICER-C LAB - NO BLOOD DRAW Edite d Result - Final [employer] [address] [address], [employer] [address] [address] * (ABNORMAL) DRUG MONITORING, PANEL 8 WITH CONFIRMATION, URINE (07/10/2024 2:50 PM EST) AMPHETAMINES NEGATIVE <500 [facility] [employer] [facility] BENZODIAZEPINES NEGATIVE <100 QUES T [employer] [facility] BUPRENORPHINE NEGATIVE <5 [facility] [facility] COCAINE METABOLITE NEGATIVE <150 Q [facility] 6 ACETYLMORPHINE NEGATIVE <[address] [employer] [facility] MARIJUANA METABOLITE NEGATIVE <20 [facility] [employer] [facility] MDMA NEGATIVE <500 [facility] [employer] [facility] OPIATES NEGATIVE <100 [facility] [facility] OXYCODONE NEGATIVE <100 [employer] [facility] CREATININE 74.1 > or = 20.0 mg/dL [employer] [facility] PH 5.4 4.5 - 9.0 [employer] [facility] OXIDANT NEGATIVE <200 [employer] [facility] ALCOHOL METABOLITES POSITIVE(A) <500 [employer] [facility] ETHYL GLUCURONIDE (ETG) >267693(H) <500 ng/mL [employer] [facility] ETHYL SULFATE (ETS) 76,551(H) <100 ng/mL [employer] [facility] Alcohol Metab Comments See Note [employer] [facility] Comment:See Alcohol Metab No rebecca, LDT Notes Urine Urine specimen / Unknown 07/10/2024 2:50 PM EST 07/11/2024 9:38 AM EST [facility] F[facility]-C LAB - NO BLOOD DRAW Edite d Result - Final Performing Organization Address [facility] Co de Phone Number [employer] [address] [address], [employer] [address] [address] * DRUG MONITORING, FENTANYL, WITH CONFIRMATION, URINE (07/10/2024 2:50 PM EST) Fentanyl NEGATIVE <0.5 [facility] [employer] [facility] Urine Urine specimen / Unknown 07/10/2024 2:50 PM EST 07/11/2024 9:38 AM EST [employer] PARKING REGULATION ENFORCEMENT OFFICER-C LAB - NO BLOOD DRAW Edite d Result - Final Performing Organization Address [facility] Co de Phone Number [employer] [address] [address], [place] [facility] [address] [place] [address] * DRUG MONITORING, BARBITURATES, WITH CONFIRMATION, URINE (07/10/2024 2:50 PM EST) BARBITURATES NEGATIVE <300 [facility] [employer] Urine Urine specimen / Unknown 07/10/2024 2:50 PM EST 07/11/2024 9:38 AM EST Harman Stein PARKING REGULATION ENFORCEMENT OFFICER-C LAB - NO BLOOD DRAW Edite d Result - Final [employer] [address] [address], [facility] [address] [place] [address] * (ABNORMAL) LIPID PANEL (03/28/2024 3:21 PM EDT) [facility] CHOLESTEROL, TOTAL 279(H) <200 mg/dL [facility] HDL CHOLESTEROL 64 > OR = 40 mg/dL [employer] TRIGLYCERIDES 336(H) <150 mg/dL [facility] Comment: If a non-fasting specimen was collected, consider repeat triglyceride testing on a fasting specimen if clinically indicated. Brandyn et al. J. of Clin. Lipidol. 2015;9:129-169. LDL-CHOLESTEROL 163(H) 99 mg/dL (calc) [employer] Comment: Reference range: <100 Desirable range <100 mg/dL for primary prevention; ?? <70 mg/dL for patients with CHD or diabetic patients with > or = 2 CHD risk factors. LDL-C is now calculated using the Stephan-Real calculation, which is a validated novel method providing better accuracy than the Friedewald equation in the estimation of LDL-C. Stephan SS et al. KAIA. 2013;310(19): 0648-1183 (http://education.VIOlife/faq/HMC707) CHOL/HDLC RATIO 4.4 <5.0 (calc) [facility] NON-HDL CHOLESTEROL 215(H) <130 mg/dL (calc) [facility] Comment: For patients with diabetes plus 1 major ASCVD risk factor, treating to a non-HDL-C goal of <100 mg/dL (LDL-C of <70 mg/dL) is considered a therapeutic option. Blood Blood / Unknown 03/28/2024 3:21 PM EDT 03/28/2024 3:22 PM EDT Narrative [employer] [facility] - 03/29/2024 4:47 AM EDT FASTING:NO us Harman Douglasri PARKING REGULATION ENFORCEMENT OFFICER-C LAB - BLOOD DRAW Final Re sult [employer] [facility] [address] [address], [employer] [facility] [address] [place] [address] * (ABNORMAL) COMPREHENSIVE METABOLIC PANEL (03/28/2024 3:21 PM EDT) GLUCOSE 82 65 - 139 mg/dL [facility] Comment: ?Non-fasting reference interval UREA NITROGEN (BUN) 14 7 - 25 mg/dL [facility] CREATININE (blood) 0.79 0.70 - 1.30 mg/dL [facility] EGFR 103 > OR = 60 mL/min/1. 73m2 [facility] BUN/CREATININE RATIO SEE NOTE: [facility] Comment: ?? Not Reported: BUN and Creatinine are within ?? reference range. ? SODIUM 139 135 - 146 mmol/L [facility] POTASSIUM 4.2 3.5 - 5.3 mmol/L [facility] CHLORIDE 102 98 - 110 mmol/L [facility] CARBON DIOXIDE 27 20 - 32 mmol/L [facility] CALCIUM 9.7 8.6 - 10.3 mg/dL [facility] PROTEIN, TOTAL 8.2(H) 6.1 - 8.1 g/dL [facility] ALBUMIN 4.9 3.6 - 5.1 g/dL [facility] GLOBULIN 3.3 1.9 - 3.7 g/dL (calc) [facility] ALBUMIN/GLOBULI N RATIO 1.5 1.0 - 2.5 (calc) [facility] BILIRUBIN, TOTAL 0.3 0.2 - 1.2 mg/dL [facility] ALKALINE PHOSPHATASE 100 35 - 144 U/L [facility] AST 23 10 - 35 U/L [employer] [facility] ALT 19 9 - 46 U/L [employer] [facility] Blood Blood / Unknown 03/28/2024 3 :21 PM EDT 03/28/2024 3:22 PM EDT Narrative [facility] [place] [facility] - 03/29/2024 4:47 AM EDT FASTING:NO Marcyforrest Sairta PARKING REGULATION ENFORCEMENT OFFICER-C LAB - BLOOD DRAW Edited R esult - Final [employer] [facility] [address] [address], [employer] [address] [address] * QUANTIFERON-TB GOLD PLUS (12/24/2023 2:07 PM EDT) [facility] QUANTIFERON NEGATIVE NEGATIVE [employer] [facility] Comment: Negative test result. M. tuberculosis complex infection unlikely. NIL 0.02 IU/mL [employer] [facility] MITOGEN-NIL >10.00 IU/mL [employer] [facility] TB1-NIL 0.01 IU/mL [facility] [facility] TB2-NIL 0.01 IU/mL [employer] [facility] Comment: The Nil tube value reflects the background interferon gamma immune response of the patient's blood sample. This value has been subtracted from the patient's displayed TB and Mitogen results. Lower than expected results with the Mitogen tube prevent false-negative Quantiferon readings by detecting a patient with a potential immune suppressive condition and/or suboptimal pre-analytical specimen handling. The TB1 Antigen tube is coated with the M. tuberculosis-specific antigens designed to elicit responses from TB antigen primed CD4+ helper T-lymphocytes. The TB2 Antigen tube is coated with the M. tuberculosis-specific antigens designed to elicit responses from TB antigen primed CD4+ helper and CD8+ cytotoxic T-lymphocytes. For additional information, please refer to https://education.[employer]/faq/QXM428 (This link is being provided for informational/ educational purposes only.) Blood Blood / Unknown 12/24/2023 2 :07 PM EDT 12/24/2023 2:08 PM EDT Narrative [facility] [facility] - 12/29/2023 3:49 PM EDT FASTING:NO Harman Stein PARKING REGULATION ENFORCEMENT OFFICER-C LAB - BLOOD DRAW Final Re sult Performing Organization Address [facility]/ZIP Co de Phone Number [employer] [facility] [address] [address], [employer] [address] [address] * HIV 1/2 AG & AB W/RFLX (4TH GEN) (12/24/2023 2:07 PM EDT) HIV AG/AB, 4TH GEN NON-REAC TIVE NON-REAC TIVE [facility] Comment: HIV-1 antigen and HIV-1/HIV-2 antibodies were not detected. There is no laboratory evidence of HIV infection. PLEASE NOTE: This information has been disclosed to you from records whose confidentiality may be protected by state law. ??If your state requires such protection, then the state law prohibits you from making any further disclosure of the information without the specific written consent of the person to whom it pertains, or as otherwise permitted by law. A general authorization for the release of medical or other information is NOT sufficient for this purpose. ?? For additional information please refer to http://education.[employer]/faq/VRL328 (This link is being provided for informational/ educational purposes only.) The performance of this assay has not been clinically validated in patients less than 2 years old. Blood Blood / Unknown 12/24/2023 2 :07 PM EDT 12/24/2023 2:08 PM EDT Narrative [employer] [facility] - 12/29/2023 3:49 PM EDT FASTING:NO Harman Stein PARKING REGULATION ENFORCEMENT OFFICER-C LAB - BLOOD DRAW Final Re sult [employer] [facility] [address] [address], [employer] [address] [address] * ACUTE HEPATITIS PANEL W/RFLX (12/24/2023 2:07 PM EDT) HEPATITIS B SURFACE ANTIGEN NON-REACT PAYTON NON-REACT PAYTON [employer] [facility] COMMENT [facility] [facility] HEPATITIS A IGM ANTIBODY NON-REACT PAYTON NON-REACT PAYTON [facility] HEPATITIS B CORE IGM ANTIBODY NON-REACT PAYTON NON-REACT PAYTON [facility] [facility] COMMENT [employer] [facility] HEPATITIS C ANTIBODY NON-REACT PAYTON NON-REACT PAYTON [employer] [facility] Comment: HCV antibody was non-reactive. There is no laboratory evidence of HCV infection. In most cases, no further action is required. However, if recent HCV exposure is suspected, a test for HCV RNA (test code 01855) is suggested. For additional information please refer to http://[employer]/faq/DJT60d8 (This link is being provided for informational/ educational purposes only.) COMMENT [employer] [facility] Blood Blood / Unknown 12/24/2023 2 :07 PM EDT 12/24/2023 2:08 PM EDT Narrative [employer] [facility] - 12/29/2023 3:49 PM EDT FASTING:NO For additional information, please refer to http://[employer]/faq/BDJ733 (This link is being provided for informational/ educational purposes only.) For additional information, please refer to http://[employer]/faq/CDM985 (This link is being provided for informational/ educational purposes only.) For additional information, please refer to http://[employer]/faq/IZA198 (This link is being provided for informational/ educational purposes only.) Harman Stein PARKING REGULATION ENFORCEMENT OFFICER-C LAB - BLOOD DRAW Final Re sult [facility] [address] [address], [employer] [facility] [address] [place] [address] from Last 3 Months or Most Recently Relevant to Health Maintenance Insurance [place] MEDICAID [place] [address] [facility] [facility] Care Teams Charter Boat Captain Relationship Specialty Start Date End Date Harman Stein FNP-C [address] [place] [address] PCP - General Internal Medicine 03/11/23
--- OUTSIDE RECORDS SUMMARY | 2024-10-06 12:55 | XMS_ITS | Clinical Summary ---
Author Organization [facility] Address [address] [place] [address] Phone Care Team Providers Care Waste Hand Name Role Phone Physician, No Pcp Primary Care Provider Unavaila ble Allergies No known active allergies Medications Ventolin HFA 90 mcg/actuation inhaler Inhale 2 puffs by mouth every 4 (four) hours if needed. 08/27/2024 Active atorvastatin (LIPITOR) 20 mg tablet Take 1 tablet (20 mg total) by mouth at bedtime. Active prazosin (MINIPRESS) 2 mg capsule Take 1 capsule (2 mg total) by mouth at bedtime. 09/14/2024 Active QUEtiapine (SEROquel) 100 mg tablet Take 1 tablet (100 mg total) by mouth at bedtime. Active Encounters Date Type Department Care Team Description 10/05/2024 9:19 PM EST - 10/06/2024 12:33 PM [facility] Emergency [facility] Emergency [address] [place] [phone] Melani Pfeiffer MD Landry, Jonathan P, MD Suicidal ideation (Primary Dx); Alcohol abuse Discharge Disposition: [facility] 09/03/2024 10:05 PM EST - 09/04/2024 11:12 AM [facility] Emergency [address] [place] [address] Discharge Disposition: Home or Self Care from Last 3 Months Medical History Medical History Date Comments ETOH abuse DX:ETOH abuse Social History Tobacco Use Types Packs/Day Years Used Date Smoking Tobacco: Every Day Smokeless Tobacco: Never Alcohol Use Standard Drinks/Week Comments Yes 0 (1 standard drink = 0.6 oz pur e alcohol) Sex and Gender Information Value Date Recorded Sex Assigned at Not on file Legal Sex Male 4:33 AM EST Gender Identity Not on file Sexual Orientation Not on file Obstetrics History Last Filed Vital Signs Vital Sign Reading [...] Mass Index 28.13 10/05/2024 10:57 PM EST Plan of Treatment Health Maintenance Due Date Last Done Comments Hepatitis A Vaccines (1 of 2 - Risk 2-dose series) 1984 Hepatitis B Vaccines (1 of 3 - 19+ 3-dose series) 1984 Pneumococcal Vaccine: 50+ Years (2 of 2 - PCV) 09/09/2019 09/09/2018 Pneumococcal Vaccine: Pediatrics (0 to 5 Years) and At-Risk Patients (6 to 64 Years) (2 of 2 - PCV) 09/09/2019 09/09/2018 Colorectal Cancer Screening: Colonoscopy 07/26/2022 HIV Screening 07/26/2022 Lung Cancer Screening (Low Dose CT) 07/26/2022 Social Influencers of Health Screening 07/26/2022 Zoster Vaccines (2 of 2) 02/18/2024 12/24/2023 Depression Screening 06/16/2025 06/16/2024 Cholesterol Screening (Lipid Panel) 03/28/2029 03/28/2024, 03/28/2024, 12/24/2023, Additional history exists DTaP,Tdap,and Td Vaccines (3 - Td or Tdap) 12/23/2033 12/24/2023, 09/09/2018 RSV Immunization Patients 60+ Years Old (1 - 1-dose 75+ series) 2040 Hepatitis C Screening Completed 12/24/2023 COVID-19 Vaccine Completed 09/29/2024, 04/2024, 12/13/2021, Additional history exists Influenza Vaccine Completed 09/29/2024, , 08/27/2020, Additional history exists HIB Vaccines Aged Out No longer eligi ble based on patient's age to complete this topic HPV Vaccines Aged Out No longer eligi ble based on patient's age to complete this topic IPV Vaccines Aged Out No longer eligi ble based on patient's age to complete this topic MMR Vaccines Aged Out No longer eligi ble based on patient's age to complete this topic Meningococcal ACWY Vaccine Aged Out N o longer eligible based on patient's age to complete this topic Meningococcal B Vacine Aged Out No lo nger eligible based on patient's age to complete this topic RSV Immunization Patients Under 20 months Aged Out No longer eligible based on patient's age to complete this topic Varicella Vaccines Aged Out No longer eligible based on patient's age to complete this topic Procedures Procedure Name Priority Date/Time Associated Diagnosis Comments ECG 12-LEAD STAT 10/06/2024 10:50 AM EST TIGER TOP URINE TUBE Routine 10/05/2024 10:52 PM EST EXTRA TUBES Routine 10/05/2024 10:52 PM EST CBC WITH AUTO DIFFERENTIAL STAT 10/05/2024 10:52 PM EST METHADONE SCREEN, URINE STAT 10/05/2024 10:52 PM EST PHENCYCLIDINE, URINE STAT 10/05/2024 10:52 PM EST BUPRENORPHINE SCREEN, URINE STAT 10/05/2024 10:52 PM EST DRUG ABUSE SCREEN 8A PANEL, URINE STAT 10/05/2024 10:52 PM EST SALICYLATE LEVEL STAT 10/05/2024 10:5 2 PM EST ACETAMINOPHEN LEVEL STAT 10/05/2024 1 0:52 PM EST ETHANOL STAT 10/05/2024 10:52 PM EST COMPREHENSIVE METABOLIC PANEL STAT 10/05/2024 10:52 PM EST CBC AND DIFFERENTIAL STAT 10/05/2024 10:52 PM EST XR CHEST 2 VIEWS STAT 09/03/2024 10:4 8 PM EST from Last 3 Months Results * [place] top urine tube (10/05/2024 10:52 PM EST) Extra Tube Hold for add-ons. 10/06/2024 1:10 AM EST [facility] Comment:Auto resulted. Urine Urine specimen obtained by clean catch procedure / Unknown Non-blood Collection / Unknown 10/05/2024 10:52 PM EST 10/05/2024 11:01 PM EST [facility] URINE ORDERABLES Final Resu lt [facility] [address] [place] [address], * Drug abuse screen 8a panel, urine (10/05/2024 10:52 PM EST) [facility] Amphetamine Screen, Ur Negative Negative LAB CHEMISTRY METHOD 10/05/2024 11:26 PM [facility] Comment:Certain OTC medicati ons containing ephedrine, phenylephrine, pseudoephedrine and phenylpropanolamine can cause false positive results. Barbiturate Screen, Ur Negative Negative LAB CHEMISTRY METHOD 10/05/2024 11:26 PM EST [facility] Benzodiazepine Screen, Ur Negative Negative LAB CHEMISTRY METHOD 10/05/2024 11:26 PM [facility] Cocaine Screen, Ur Negative Negative LAB CHEMISTRY METHOD 10/05/2024 11:26 PM [facility] Opiate Screen, Ur Negative Negative LAB CHEMISTRY METHOD 10/05/2024 11:26 PM EST [facility] Cannabinoid (THC) Screen, Ur Negative Negative LAB CHEMISTRY METHOD 10/05/2024 11:26 PM EST [facility] Comment:Specimens from patie nts taking pantoprazole sodium (Protonix) have been shown to produce false positive results. Oxycodone Screen, Ur Negative Negative LAB CHEMISTRY METHOD 10/05/2024 11:26 PM EST [facility] Fentanyl, Ur Negative Negative LAB CHEMISTRY METHOD 10/05/2024 11:26 PM [facility] Urine Urine specimen obtained by clean catch procedure / Unknown Non-blood Collection / Unknown 10/05/2024 10:52 PM EST 10/05/2024 11:00 PM EST [facility] - 10/05/2024 11:26 PM EST [...] ORDERABLES Final Resu lt Performing Organization Address [facility]/State/ZIP Co de Phone Number [facility]) [facility] [address] [place] [address], * Buprenorphine screen, urine (10/05/2024 10:52 PM EST) Buprenorphine Screen Urine Negative Negative LAB CHEMISTRY METHOD 10/05/2024 11:26 PM EST [facility] Urine Urine specimen obtained by clean catch procedure / Unknown Non-blood Collection / Unknown 10/05/2024 10:52 PM EST 10/05/2024 11:00 PM EST Narrative [facility] - 10/05/2024 11:26 PM EST Assay cutoff 5 ng/mL Semi-quantitative assay for screening purposes only. Unconfirmed screening result should not be used for non-medical purposes. *ALTERNATE METHOD CONFIRMATION DONE UPON REQUEST ONLY* [facility] URINE ORDERABLES Final Resu lt Performing Organization Address [facility] Co de Phone Number [facility] [address] [place] [address], [place] [phone] * Methadone, urine (10/05/2024 10:52 PM EST) Methadone Screen, Urine Negative Negative LAB CHEMISTRY METHOD 10/05/2024 11:26 PM EST [facility] Comment: Assay cutoff 300 ng/mL Semi-quantitative assay for screening purposes only. Unconfirmed screening result should not be used for non-medical purposes. *ALTERNATE METHOD CONFIRMATION DONE UPON REQUEST ONLY* Urine Urine specimen obtained by clean catch procedure / Unknown Non-blood Collection / Unknown 10/05/2024 10:52 PM EST 10/05/2024 11:00 PM EST [facility] URINE ORDERABLES Final Resu lt Performing Organization Address [facility]/ZIP Co de Phone Number [facility] [address] [place] [address], [place] [phone] * (ABNORMAL) CBC auto differential (10/05/2024 10:52 PM EST) WBC 5.5 4.8 - 10.8 K/[facility] HEMETOLOGY METHOD 10/05/2024 11:05 PM EST [facility] RBC 4.00(L) 4.50 - 5.50 M/[facility] HEMETOLOGY METHOD 10/05/2024 11:05 PM [facility] Hemoglobin 13.3(L) 13.5 - 17.5 g/dL LAB HEMETOLOGY METHOD 10/05/2024 11:05 PM [facility] Hematocrit 37.9(L) 42.0 - 54.0 % LAB HEMETOLOGY METHOD 10/05/2024 11:05 PM [facility] MCV 94.0 79.0 - 98.0 FL LAB HEMETOLOGY METHOD 10/05/2024 11:05 PM [facility] MCH 33.0(H) 27.0 - 32.0 pcg LAB HEMETOLOGY METHOD 10/05/2024 11:05 PM [facility] MCHC 35.1 32.0 - 37.0 g/dL LAB HEMETOLOGY METHOD 10/05/2024 11:05 PM [facility] RDW 12.5 11.0 - 15.0 % LAB HEMETOLOGY METHOD 10/05/2024 11:05 PM [facility] Platelets 202 130 - 400 K/mcL LAB HEMETOLOGY METHOD 10/05/2024 11:05 PM [facility] MPV 9.5 7.0 - 11.0 FL LAB HEMETOLOGY METHOD 10/05/2024 11:05 PM [facility] NRBC 0.0 <1.0 % LAB HEMETOLOGY METHOD 10/05/2024 11:05 PM [facility] NRBC Absolute 0.00 <0.10 K/mcL LAB HEMETOLOGY METHOD 10/05/2024 11:05 PM [facility] Neutrophils Relative 37.6 % LAB HEMETOLOGY METHOD 10/05/2024 11:05 PM [facility] Lymphocytes Relative 46.8 % LAB HEMETOLOGY METHOD 10/05/2024 11:05 PM [facility] Monocytes Relative 12.1 % LAB HEMETOLOGY METHOD 10/05/2024 11:05 PM [facility] Eosinophils Relative 2.7 % LAB HEMETOLOGY METHOD 10/05/2024 11:05 PM [facility] Basophils Relative 0.4 % LAB HEMETOLOGY METHOD 10/05/2024 11:05 PM [facility] Immature Granulocytes Relative 0.4 % LAB HEMETOLOGY METHOD 10/05/2024 11:05 PM [facility] Neutrophils Absolute 2.09 1.50 - 7.00 K/mcL LAB HEMETOLOGY METHOD 10/05/2024 11:05 PM [facility] Lymphocytes Absolute 2.59 1.00 - 5.00 K/mcL LAB HEMETOLOGY METHOD 10/05/2024 11:05 PM [facility] Monocytes Absolute 0.67 0.20 - 1.00 K/mcL LAB HEMETOLOGY METHOD 10/05/2024 11:05 PM EST [facility] Eosinophils Absolute 0.15 0.00 - 0.50 K/mcL LAB HEMETOLOGY METHOD 10/05/2024 11:05 PM [facility] Basophils Absolute 0.02 0.00 - 0.20 K/mcL LAB HEMETOLOGY METHOD 10/05/2024 11:05 PM [facility] Immature Granulocytes Absolute 0.02 0.00 - 0.03 K/mcL LAB HEMETOLOGY METHOD 10/05/2024 11:05 PM [facility] Blood Venous blood specimen / Unknown Venipuncture / Unknown 10/05/2024 10:52 PM EST 10/05/2024 11:00 PM EST us [facility] BLOOD ORDERABLES Final Resu lt [facility] [address] [place] [address], * Phencyclidine, urine (10/05/2024 10:52 PM EST) PCP Scrn, Ur Negative Negative LAB CHEMISTRY METHOD 10/05/2024 11:26 PM EST [facility] Comment: Assay cutoff 25 ng/mL Semi-quantitative assay for screening purposes only. Unconfirmed screening result should not be used for non-medical purposes. *ALTERNATE METHOD CONFIRMATION DONE UPON REQUEST ONLY* Urine Urine specimen obtained by clean catch procedure / Unknown Non-blood Collection / Unknown 10/05/2024 10:52 PM EST 10/05/2024 11:00 PM EST [facility] URINE ORDERABLES Final Resu lt Performing Organization Address [facility]/ZIP Co de Phone Number [facility] [address] [place] [address], [place] [phone] * (ABNORMAL) Ethanol (10/05/2024 10:52 PM EST) Ethanol Level 142(H) 0 - 10 mg/dL LAB CHEMISTRY METHOD 10/05/2024 11:26 PM EST [facility] Blood Venous blood specimen / Unknown Venipuncture / Unknown 10/05/2024 10:52 PM EST 10/05/2024 11:00 PM EST [facility] BLOOD ORDERABLES Final Resu lt [facility] [address] [place] [address], [place] [phone] * (ABNORMAL) Acetaminophen level (10/05/2024 10:52 PM EST) Acetaminophen Level <2.0(L) 10.0 - 30.0 mcg/mL LAB CHEMISTRY METHOD 10/05/2024 11:30 PM EST [facility] Blood Venous blood specimen / Unknown Venipuncture / Unknown 10/05/2024 10:52 PM EST 10/05/2024 11:00 PM EST us [facility] BLOOD ORDERABLES Final Resu lt Performing Organization Address [facility]/ZIP Co de Phone Number [facility] [address] [place] [address], [place] [phone] * (ABNORMAL) Salicylate level (10/05/2024 10:52 PM EST) Salicylate Level <1.7(L) 2.0 - 29.0 mg/dL LAB CHEMISTRY METHOD 10/05/2024 11:26 PM EST [facility] Blood Venous blood specimen / Unknown Venipuncture / Unknown 10/05/2024 10:52 PM EST 10/05/2024 11:00 PM EST [facility] BLOOD ORDERABLES Final Resu lt Performing Organization Address City/[facility]/ZIP Co de Phone Number [facility] [address] [place] [address], [place] [phone] * Comprehensive metabolic panel (10/05/2024 10:52 PM EST) Sodium 139 133 - 145 mmol/L LAB CHEMISTRY METHOD 10/05/2024 11:26 PM [facility] Potassium 4.0 3.5 - 5.5 mmol/L LAB CHEMISTRY METHOD 10/05/2024 11:26 PM [facility] Chloride 108 96 - 110 mmol/L LAB CHEMISTRY METHOD 10/05/2024 11:26 PM [facility] CO2 25 21 - 32 mmol/L LAB CHEMISTRY METHOD 10/05/2024 11:26 PM [facility] Anion Gap 6 3 - 11 LAB CHEMISTRY METHOD 10/05/2024 11:26 PM [facility] Glucose 92 70 - 100 mg/dL LAB CHEMISTRY METHOD 10/05/2024 11:26 PM [facility] BUN 19 5 - 25 mg/dL LAB CHEMISTRY METHOD 10/05/2024 11:26 PM [facility] Creatinine 0.75 0.70 - 1.30 mg/dL LAB CHEMISTRY METHOD 10/05/2024 11:26 PM [facility] eGFR 104 >=60 mL/min/1. 73m2 LAB CHEMISTRY METHOD 10/05/2024 11:26 PM [facility] Comment:Calculation based on the??Chronic Kidney Disease Epidemiology Collaboration (CKD-EPI) equation refit??without adjustment for race. BUN/Creatinine Ratio 25.3 LAB CHEMISTRY METHOD 10/05/2024 11:26 PM [facility] Calcium 9.2 8.5 - 10.5 mg/dL LAB CHEMISTRY METHOD 10/05/2024 11:26 PM [facility] AST (SGOT) 27 10 - 42 unit/L LAB CHEMISTRY METHOD 10/05/2024 11:26 PM [facility] ALT (SGPT) 32 10 - 60 unit/L LAB CHEMISTRY METHOD 10/05/2024 11:26 PM [facility] Alkaline Phosphatase 96 42 - 121 unit/L LAB CHEMISTRY METHOD 10/05/2024 11:26 PM [facility] Total Protein 7.7 6.0 - 8.0 g/dL LAB CHEMISTRY METHOD 10/05/2024 11:26 PM [facility] Albumin 4.0 3.2 - 5.0 g/dL LAB CHEMISTRY METHOD 10/05/2024 11:26 PM [facility] Total Bilirubin 0.4 0.0 - 1.4 mg/dL LAB CHEMISTRY METHOD 10/05/2024 11:26 PM [facility] Blood Venous blood specimen / Unknown Venipuncture / Unknown 10/05/2024 10:52 PM EST 10/05/2024 11:00 PM EST us [facility] BLOOD ORDERABLES Final Resu lt [facility] ([facility]) [facility] [address] [place] [address], * XR Chest 2 Views (09/03/2024 10:48 PM EST) Anatomical Region Laterality Modality Body Radiographic Radha ging 09/04/2024 8:02 AM EST Impressions 09/04/2024 8:04 AM EST No acute chest disease. -------- FINAL REPORT -------- Dictated By: Joel Lloyd Dictated Date: 09/04/2024 08:02 ET Assigned Physician: Joel Lloyd Reviewed and Electronically Signed By: Joel Lloyd Signed Date: 09/04/2024 08:04 ET Workstation ID: [id number] Transcribed By: Self Edit Transcribed Date: 09/04/2024 08:02 ET Narrative 09/04/2024 8:04 AM EST EXAMINATION: CHEST CLINICAL INFORMATION: Cough COMPARISON: Frontal view 09/06/2023 TECHNIQUE: 2 views of the chest FINDINGS: There is mild rotation to the right. ??The cardiac size, dori, and vasculature are within normal limits. ??No focal pneumonia or major zone of atelectasis. ??There is no pleural fluid or pneumothorax. No suspicious focal bony lesion. Procedure Note Joel Lloyd MD - 09/04/2024 EXAMINATION: CHEST CLINICAL INFORMATION: Cough COMPARISON: Frontal view 09/06/2023 TECHNIQUE: 2 views of the chest FINDINGS: There is mild rotation to the right. The cardiac size, dori, andvasculature are within normal limits. No focal pneumonia or major zone ofatelectasis. There is no pleural fluid or pneumothorax. No suspicious focal bony lesion. IMPRESSION: No acute chest disease. -------- FINAL REPORT -------- Dictated By: Joel Lloyd Dictated Date: 09/04/2024 08:02 ET Assigned Physician: Joel Lloyd Reviewed and Electronically Signed By: Joel Lloyd Signed Date: 09/04/2024 08:04 ET Workstation ID: [id number] Transcribed By: Self Edit Transcribed Date: 09/04/2024 08:02 ET Kasi Lobato MD IMG XR PROCEDURES Final R esult from Last 3 Months [address] [place] [address] MEDICAID - [place] Care Teams Waste Hand Relationship Specialty Start Date End Date Physician, No Pcp PCP - General 09/04/24
--- OUTSIDE RECORDS SUMMARY | 2024-10-06 12:55 | XMS_ITS | Encounter Summary ---
Author Organization [facility] Address [address] [place] [address] Care Team Providers Care Senior Clinical Data Coordinator Name Role Phone SaritaChuck lillyjason [employer] Primary Care Provider [phone] Reason for Visit * Reason Comments Behavioral Health Problem Encounter Details Date Type Department Care Team ([facility] Contact Info) Description 09/06/2024 1:30 PM EST /MH Visits [facility] [address] [place] [id number] Garrett Short FNP [address] [place] [address] Severe episode of recurrent major depressive disorder, 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) (Primary Dx); Alcohol use disorder - Severe; Distressed about housing issues; Insomnia due to other mental disorder; 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) Social History Tobacco Use Types Packs/Day Years Used Date Smoking Tobacco: Every Day Cigarettes 1 20.8 Started: 12/24/2003 Passive Smoke Exposure: Never Smokeless Tobacco: Never Alcohol Use Standard Drinks/Week Comments Yes 22 [...] Unable to assess 09/06/2024 1:29 PM EST documented as of this encounter Progress Notes * Garrett Han, BRIDGER - 09/06/2024 3:10 PM EST Subjective HPI Visit START TIME: 1.30 pm Visit END TIME: 2 pm Allan Guillen is a 58-year-old male who is being seen at the clinic for a follow-up appointment, has a history, and is being treated for depression and alcohol use disorder. Depression -The patient reported still experiencing a depressive mood in the form of worthless feelings and isolation. The patient continues to have housing challenges and this has caused worsening depressive symptoms. He reports was banned from being at [employer] during the day and now spends his day at a local train station and returns home at night. He continues to use alcohol daily, his last drink was this morning. Anxiety - The patient reported experiencing severe symptoms in the form of excessive worrying. Sleep - The patient reported average, taking Quetiapine at HS - The patient is requesting a dose increase. Stressors - As noted above Appetite - The patient reported a normal appetite Manic symptoms - The patient denies any manic symptoms in the form of racing thoughts, mood swings,increased energy, reckless behavior, or less need for sleep. The patient reports being compliant with medications. The Patient reports a good response to medications. The patient denies side effects. Safety Assessment (Suicide/Homicidal Risk) Feels like hurting self DENIES Violence Risk: No Active Intent, No Plan Feels like hurting others DENIES Suicidal Risk: No Active SI, No Plan Emotion/Mood Calm Coping (Observed Emotional State) Calm and Cooperative Speech Clear, coherent Orientation WNL Thought Processes WNL Hallucinations Denies hallucinations Delusions No delusions Review of Systems- as noted above Objective There were no vitals filed for this visit. Estimated body mass index is 32.72 kg/m?? as calculated from the following: Height as of 07/12/20: 5' 4 (1.626 m). Weight as of 03/28/24: 190 lb 9.6 oz (86.5 kg). No height and weight on file for this encounter. Physical Exam Constitutional: Appearance: Normal appearance. HENT: Head: Normocephalic and atraumatic. Neurological: Mental Status: He is alert and oriented to person, place, and time. Psychiatric: Attention and Perception: Attention normal. Mood and Affect: Mood normal. Speech: Speech normal. Behavior: Behavior normal. Thought Content: Thought content normal. Cognition and Memory: Cognition normal. Judgment: Judgment normal. Assessment and Plan 1. Severe episode of recurrent major depressive disorder, 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) (Primary) - QUEtiapine (SEROQUEL) 100 mg tablet; Take 1 Tablet by mouth nightly at bedtime for 90 days Dispense: 30 Tablet; Refill: 2 2. Alcohol use disorder - Severe 3. Distressed about housing issues 4. Insomnia due to other mental disorder 5. 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) - QUEtiapine (SEROQUEL) 100 mg tablet; Take 1 Tablet by mouth nightly at bedtime for 90 days Dispense: 30 Tablet; Refill: 2 The patient will return next week as requested to discuss alcohol cessation . RTC as scheduled and prn or if symptoms worsen documented in this encounter Plan of Treatment Upcoming Encounters Date Type Department Care Team (Late st Contact Info) Description 11/23/2024 9:50 AM EDT Interim Notes [facility] [address] [place] [phone] 11/23/2024 10:20 AM EDT Office Visit [facility] [address] [place] [phone] Harman Stein FNP-C [address] [place] [address] 11/23/2024 10:50 AM EDT Interim Notes [facility] [address] [place] [phone] documented as of this encounter Visit Diagnoses Diagnosis Severe episode of recurrent major depressive disorder, 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)- Primary Alcohol use disorder - Severe Distressed about housing issues Other specified housing or economic circumstances Insomnia due to other mental disorder 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) documented in this encounter Additional Health Concerns Assessment Noted Time PHQ-9 Depression Total Score: 17 024 2:00 PM PDT documented as of this encounter Care Teams Senior Clinical Data Coordinator Relationship Specialty Start Date End Date Harman Stein FNP-C [address] [place] [address] PCP - General Internal Medicine 03/11/23 documented as of this encounter
--- OUTSIDE RECORDS SUMMARY | 2024-10-06 12:55 | XMS_ITS | Encounter Summary ---
Author Organization [facility] Address [address] [place] [address] Care Team Providers Care Addictions Therapist Name Role Phone Harman Stein SOLAR SYSTEM DESIGNER-C Primary Care Provider [phone] Encounter Details Date Type Department Care Team (Latest Contact Info) Description 09/06/2024 Travel Social History Tobacco Use Types Packs/Day Years [...] PM EST documented as of this encounter Plan of Treatment Upcoming Encounters Date Type Department Care Team (Late st Contact Info) Description 11/23/2024 9:50 AM EDT Interim Notes [facility] [address] [place] [phone] 11/23/2024 10:20 AM EDT Office Visit [facility] [address] [phone] Harman Stein FNP-C [address] [place] [phone] 11/23/2024 10:50 AM EDT Interim Notes [facility] Unit [address] [place] [phone] documented as of this encounter Visit Diagnoses Not on filedocumented in this encounter Additional Health Concerns Assessment Noted Time PHQ-9 Depression Total Score: 17 024 2:00 PM PDT documented as of this encounter Care Teams Addictions Therapist Relationship Specialty Start Date End Date Harman Stein FNP-C [address] [place] [phone] PCP - General Internal Medicine 03/11/23 documented as of this encounter
--- OUTSIDE RECORDS SUMMARY | 2024-10-06 12:55 | XMS_ITS | Clinical Summary ---
Author Organization [facility] Address [address] [place] [address] Care Team Providers Care Customer Relations Representative Name Role Phone Pcp, No Primary Care Provider Unavailabl e Allergies No known active allergies Social History Tobacco Use Types Packs/Day Years Used Date Smoking Tobacco: Never Assessed Sex and Gender Information Value Date Recorded Sex Assigned at Not on file Gender Identity Not on file Sexual Orientation Not on file Last Filed Vital Signs Vital Sign Reading Time Taken Comments Blood Pressure 112/63 10/31/2020 5:14 AM EST Pulse 85 10/31/2020 5:14 AM EST Temperature 36.4 ??C (97.6 ??F) 10/31/2020 5:14 AM ES T Respiratory Rate 18 10/31/2020 5:14 AM EST Oxygen Saturation 97% 10/31/2020 5:14 AM EST Inhaled Oxygen Concentration - - Weight - - Height - - Body Mass Index - - Plan of Treatment Health Maintenance Due Date Last Done Comments Hepatitis C Virus Screening 1965 HIV Screening 1978 DTaP/Tdap/Td Vaccines (1 - Tdap) 1984 Hepatitis B Vaccines (1 of 3 - 19+ 3-dose series) 1984 Colonoscopy 2010 Pneumococcal Vaccines 50+ (1 of 1 - PCV) 2015 Zoster (Shingles) Vaccine (1 of 2) 2015 Influenza Vaccine 03/23/2024 COVID-19 Vaccine ( - 2023-2 5 season) 2024 Pneumococcal Vaccine: Pediat callie (0-5 Years) and At-Risk Patients (6 to 49 Years) Aged Out No longer eligible b ased on patient's age to complete this topic Care Teams Customer Relations Representative Relationship Specialty Start Date End Date Pcp, No [address] [place] [address] PCP - General 10/31/20
--- OUTSIDE RECORDS SUMMARY | 2024-10-06 12:55 | XMS_ITS | Encounter Summary ---
Author Organization [facility] Address [address] [place] [address] Care Team Providers Care Sign Hanger Name Role Phone Harman Stein MILLING/POLISHING OPERATOR-C Primary Care Provider [phone] Reason for Visit * Reason Comments Care Coordination Encounter Details Date Type Department Care Team ([facility] Contact Info) Description 09/15/2024 Interim Notes [facility] [address] [place] [phone] Callie Galicia [address] [place] [address] Social History Tobacco Use Types Packs/Day Years [...] as of this encounter Progress Notes * Callie Galicia - 09/15/2024 1:50 PM EST Patient identified through ADT feed. Patient admitted 09/14/24 and discharged 09/14/24 from [facility]. Patient is not eligible for care management at this time. Patient is engaged with [facility] documented in this encounter Plan of Treatment Upcoming Encounters Date Type Department Care Team (Late st Contact Info) Description 11/23/2024 9:50 AM EDT Interim Notes [address] [phone] 11/23/2024 10:20 AM EDT Office Visit [address] [phone] Harman Stein FNP-C [address] [place] [phone] 11/23/2024 10:50 AM EDT Interim Notes [address] [phone] documented as of this encounter Visit Diagnoses Not on filedocumented in this encounter Additional Health Concerns Assessment Noted Time PHQ-9 Depression Total Score: 17 024 2:00 PM PDT documented as of this encounter Care Teams Sign Hanger Relationship Specialty Start Date End Date Harman Stein FNP-C [address] [place] [phone] PCP - General Internal Medicine 03/11/23 documented as of this encounter
[2024-10-06] MEDS: Thiamine HCL 100 MG TABLET PO (12:59)
[2024-10-06] MEDS: LORazepam 1 MG TABLET 2 MG PO (12:59)
[2024-10-06 13:00] VITALS: BP 157/96; PULSE 88; TEMP 36.7; O2SAT 100
[2024-10-06 13:04] VITALS: BMI 32.4
--- NOTE | 2024-10-06 15:25 | HO.HSGERICON ---
History of Present Illness Data of Consult Service Date: 10/06/24 Requesting physician: Saul Villasenor Primary Care Provider: Unknown Physician HPI Reason for consult: from outside hospital 59yo M with alcohol use disorder, tobacco abuse, hyperlipidemia, and depression who presented to [facility] for suicidal and homicidal ideation and was transferred to [address] for inpatient psychiatric care. States last drink was yesterday and BAL @ [facility] was 142. Endorses history of withdrawal symptoms but not seizures. CMP was normal and urine toxicology negative. He denies fever, chills, dyspnea, cough, abdominal pain, or chest pain. He does endorse urinary urgency and frequency with some burning. No known history of diabetes but it does run in his family. Review of Systems Review of Systems: Yes all other systems are reviewed and are negative [facility] Medical History (Updated 10/06/24 @ 15:31 by Alvaro Ham MD) Depression Tobacco abuse Alcohol use disorder Hyperlipidemia Social History Household Members: None Housing: Homeless Do you presently have visiting nurse or other home services: No Patient Tobacco Use Status: Current everyday Tobacco user Tobacco use type: Cigarette Cigarette Packs Per Day: 1 Cigarettes Per Day: 20.0 Smoked in Last 30 Days: Yes Patient Interested in Nicotine Replacement: Yes Patient Given Instructions on How to Stop Smoking: No Second Hand Smoke Exposure: No Use of substances other than those prescribed or required for medical reasons: No Any prior treatment program specific to substance use: Yes ([facility]) Have you been hit, kicked, punched, or otherwise hurt by someone within the past year? If so, by whom?: No Do you feel safe in your current relationship?: No Current Relationship Is there a partner from a previous relationship who is making you feel unsafe now?: No Are you made to feel afraid or neglected: No Advance Directives: No Advance Directives Information Provided: Yes Do you have a plan to hurt others: No Plan Recently lost weight without trying: Yes How much weight loss: 2-13 pounds Eating poorly because of decreased appetite: Yes Nutrition screen score: 4 Nutrition Risks: Anorexia Poor oral hygiene: Yes Meds Allergies Allergy/AdvReac Type Severity Reaction Status Date / Time No Known Allergies Allergy Verified 09/02/23 18:17 Active Medications: Current Medications Acetaminophen (Acetaminophen 325 Mg Tablet) 650 mg PO Q6H PRN PRN Reason: Headache/Pain, Scale 1-10 Al Hydroxide/Mg Hydroxide (Magnesium Hydrox/Alum Hydrox 30 Ml Oral.Susp) 30 ml PO Q6H PRN PRN Reason: Heartburn/Nausea Hydroxyzine HCl (Hydroxyzine Hcl 25 Mg Tablet) 25 mg PO Q6H PRN PRN Reason: mild anxiety Lorazepam (Lorazepam 1 Mg Tablet) 1 mg PO Q2H PRN PRN Reason: CIWA 8-11 Lorazepam (Lorazepam 1 Mg Tablet) 2 mg PO Q2H PRN PRN Reason: CIWA 12-15 Last Admin: 10/06/24 12:59 Dose: 2 mg Lorazepam (Lorazepam 1 Mg Tablet) 3 mg PO Q2H PRN PRN Reason: CIWA > 15, and call Magnesium Hydroxide (Milk Of Magnesia 30 Ml Oral.Susp) 30 ml PO DAILY PRN PRN Reason: Constipation Nicotine Polacrilex (Nicotine Polacrilex Lozenge 4 Mg Lozenge) 4 mg BUCCAL Q1H PRN PRN Reason: Nicotine Cravings Quetiapine Fumarate (Quetiapine Fumarate 50 Mg Tablet) 50 mg PO BEDTIME JOSE DE JESUS Thiamine HCl (Thiamine Hcl 100 Mg Tablet) 100 mg PO DAILY JOSE DE JESUS Last Admin: 10/06/24 12:59 Dose: 100 mg Trazodone HCl (Trazodone Hcl 50 Mg Tablet) 50 mg PO BEDTIME MRX1 PRN PRN Reason: Insomnia Assessment and Plan (1) Depression: Status: Acute Plan 59yo M with alcohol use disorder, tobacco abuse, hyperlipidemia, and depression who presented to [facility] for suicidal and homicidal ideation and was transferred to [address] for inpatient psychiatric care. Medical consult requested. urinary urgency/frequency - Screen for DM with random glucose and A1c; also check UA/UM/UCx and urine GC/CT. HLD - Please continue statin once medication reconciliation done AUD with risk of withdrawal - Monitor CIWA and give prn lorazepam as you are doing. Thank you for this consultation. We are signing off the case at this time. Please communicate with us if any new medical questions arise. Physical Exam Vital Signs: Last Vital Signs Temp 98.1 F 10/06/24 13:00 Pulse 88 10/06/24 13:00 BP 157/96 H 10/06/24 13:00 Pulse Ox 100 10/06/24 13:00 O2 Del Method Room Air 10/06/24 13:00 BMI result Body Mass Index 32.4 Gen: in no acute distress HEENT: sclera anicteric, moist mucus membranes Neck: supple Lungs: clear to auscultation bilaterally Heart: regular rate and rhythm, no murmurs Abd: soft, non-tender, non-distended Ext: no edema Skin: warm/well-perfused Neuro: alert and oriented x3, no focal findings Psych: appropriate affect Neuro Cranial nerves: Yes CN's II-XII intact bilaterally
--- NOTE | 2024-10-06 15:46 | PC.NURSE ---
[facility].? [place], broke up with girlfriend and reported vague SI and homicidality in general. He reports he had been to [facility] several times but has been off his psych meds ( which he found helpful) for 3 months because he was unable to get refills. He says he drinks to manage the symptoms of anxiety and depression he struggles with since being off meds.? On admission CIWA is 12 and he received 2mg of ativan per protocol.? Mood is depressed. Affect is anxious. Thought Process is organized He reports recent SI and HI but on admission he feels safe with no ideation, plan or intent to harm self or others. Appetite has been poor and he has lost 10 pounds recently.? Sleep has been poor. Focus is good.? Substance Issues: pt reports drinking alcohol >10 servings every day.? Medical Issues include high cholesterol, urinary urgency and a painful bunion on the right foot Goal of admission is to restart psychiatric meds and make a plan to remain sober after discharge. Safety Checks are q 15 minutes.
--- NOTE | 2024-10-06 15:49 | MHC.CLN ---
NUTRITION CONSULT FOR REPORTED 10# WEIGHT LOSS. REVIEW OF WEIGHT HX SHOWS MODERATE WEIGHT GAIN X ONE YEAR, +4%. PLEASE CONSULT RD IF POOR PO INTAKE AT MEALS.
[2024-10-06 15:55] LABS: Glucose Random 82 mg/dL (60-115)
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
[2024-10-06 17:47] LABS: Appearance Urine Clear; Color Urine Yellow; Glucose Urine UA Negative (Negative); Leukocyte Esterase Urine Negative (Negative); Nitrite Urine Negative (Negative); PH 6.5 (5.0-9.0); Specific Gravity - Urine 1.025 (1.005-1.025); UMIC TRIGGER UA YES; Urine Blood Trace (Negative); Urine Ketones Trace mg/dL (Negative); Urine Protein Trace mg/dL (Neg-Trace)
[2024-10-06] MEDS: LORazepam 1 MG TABLET PO ×2 (17:47→20:21)
[2024-10-06 17:50] LABS: Bacteria Urine None Seen (None Seen); Hyaline Casts Urine 0-2 /LPF (0-2); Squamous Epithelial Cell Urine 0-2 /HPF (0-2); WBC Urine 0-5 /HPF (0-5)
[2024-10-06 20:00] VITALS: BP 115/74; PULSE 80; RESP 16; TEMP 36.6; O2SAT 98
[2024-10-06] MEDS: Acetaminophen 325 MG TABLET 650 MG PO (20:20)
[2024-10-06] MEDS: QUEtiapine Fumarate 50 MG TABLET PO (20:21)
[2024-10-06] MEDS: Nicotine Polacrilex Lozenge 4 MG LOZENGE BUCCAL (20:25)
[2024-10-06] MEDS: traZODone HCL 50 MG TABLET PO (20:25)
[2024-10-06] MEDS: hydrOXYzine HCL 25 MG TABLET PO (20:25)
[2024-10-07 03:50] LABS: CT PCR NOT DETECTED (Not Detect.); NG PCR NOT DETECTED (Not Detect.)
[2024-10-07] MEDS: Thiamine HCL 100 MG TABLET PO (07:59)
[2024-10-07] MEDS: Nicotine Polacrilex Lozenge 4 MG LOZENGE BUCCAL ×4 (07:59→20:15)
[2024-10-07 08:00] VITALS: BP 111/59; PULSE 81; RESP 14; TEMP 36.4; O2SAT 94
[2024-10-07] MEDS: LORazepam 1 MG TABLET PO ×3 (08:03→20:11)
--- NOTE | 2024-10-07 09:42 | HO.PSYCHPN ---
Subjective Subjective Date of Service: 10/07/24 Reason For Visit: Depression, ETOH Subjective Notes: Conditional Voluntary Interim History: Patient was seen and discussed in rounds today. Records and plans were reviewed. He is settling in and did score on his CIWA initially but it has been mild after that. Some irritability. He has been off his medications for a few months. Eating and sleeping adequately. No complaints or side effects currently. No changes were made today Review of Systems Review of Systems Yes all other systems are reviewed and are negative Mental Status Exam Mental Status Exam Narrative: In today's visit he is alert, oriented and pleasant. Normal speech. Little eye contact. Affect is appropriate and constricted. No acute signs of psychosis but endorses mild AVH. Cognitively is grossly intact. Moves all limbs. No gait abnormalities. Judgment is intact Diagnostics Vital Signs (24Hr): Vital Signs - 24 hr 10/06/24 13:00 10/06/24 20:00 10/07/24 08:00 Temperature 98.1 F 97.8 F 97.5 F Pulse Rate 88 80 81 Respiratory Rate 16 14 Blood Pressure 157/96 H 115/74 111/59 L Pulse Oximetry 100 98 94 Oxygen Delivery Method Room Air Room Air Room Air BMI result Body Mass Index 32.4 Labs 10/06/24 15:41 Labs: Laboratory Results - last 48 hr 10/06/24 10/06/24 15:41 17:28 Random Glucose 82 Urine Color Yellow Urine Appearance Clear Urine pH 6.5 Ur Specific [place] 1.025 Urine Protein Trace Urine Glucose (UA) Negative Urine Ketones Trace Urine Blood Trace H Urine Nitrite Negative Ur Leukocyte Esterase Negative Urine RBC 6-10 H Urine WBC 0-5 Ur Squamous Epith Cells 0-2 Urine Bacteria None Seen Hyaline Casts 0-2 Chlam trachomat DNA PCR NOT DETECTED N.gonorrhoeae DNA (PCR) NOT DETECTED Medications Medications Current Medications Acetaminophen (Acetaminophen 325 Mg Tablet) 650 mg PO Q6H PRN PRN Reason: Headache/Pain, Scale 1-10 Last Admin: 10/06/24 20:20 Dose: 650 mg Al Hydroxide/Mg Hydroxide (Magnesium Hydrox/Alum Hydrox 30 Ml Oral.Susp) 30 ml PO Q6H PRN PRN Reason: Heartburn/Nausea Hydroxyzine HCl (Hydroxyzine Hcl 25 Mg Tablet) 25 mg PO Q6H PRN PRN Reason: mild anxiety Last Admin: 10/06/24 20:25 Dose: 25 mg Lorazepam (Lorazepam 1 Mg Tablet) 1 mg PO Q2H PRN PRN Reason: CIWA 8-11 Last Admin: 10/07/24 08:03 Dose: 1 mg Lorazepam (Lorazepam 1 Mg Tablet) 2 mg PO Q2H PRN PRN Reason: CIWA 12-15 Last Admin: 10/06/24 12:59 Dose: 2 mg Lorazepam (Lorazepam 1 Mg Tablet) 3 mg PO Q2H PRN PRN Reason: CIWA > 15, and call Magnesium Hydroxide (Milk Of Magnesia 30 Ml Oral.Susp) 30 ml PO DAILY PRN PRN Reason: Constipation Nicotine Polacrilex (Nicotine Polacrilex Lozenge 4 Mg Lozenge) 4 mg BUCCAL Q1H PRN PRN Reason: Nicotine Cravings Last Admin: 10/07/24 07:59 Dose: 4 mg Quetiapine Fumarate (Quetiapine Fumarate 50 Mg Tablet) 50 mg PO BEDTIME JOSE DE JESUS Last Admin: 10/06/24 20:21 Dose: 50 mg Thiamine HCl (Thiamine Hcl 100 Mg Tablet) 100 mg PO DAILY JOSE DE JESUS Last Admin: 10/07/24 07:59 Dose: 100 mg Trazodone HCl (Trazodone Hcl 50 Mg Tablet) 50 mg PO BEDTIME MRX1 PRN PRN Reason: Insomnia Last Admin: 10/06/24 20:25 Dose: 50 mg Allergies Allergies Allergy/AdvReac Type Severity Reaction Status Date / Time No Known Allergies Allergy Verified 09/02/23 18:17 Assessment & Plan Assessment & Plan (1) Depression: Status: Acute Code(s): F32.A - Depression, unspecified (2) Alcohol use disorder: Status: Acute Code(s): F10.90 - Alcohol use, unspecified, uncomplicated Plan ativan per [facility] protocol for AUD. seroquel 50 QHS for paranoia and psychotic Sx. sleep study for presumed YAN Dx. referral for outpt services. 10/07: Continue current regimen and plans Reason for continued inpatient stay Substantial Risk for: med/psych decompensation Time Spent With Patient Time: Total time managing care of this patient today ____ minutes.
[2024-10-07 11:34] LABS: Estimated Average Glucose 111 mg/dL; Hemoglobin A1C 141.6574 umol/L; Hemoglobin A1c % 5.5 % (<6.0); Total Hemoglobin (HGBA1C) 3848.1574 umol/L
[2024-10-07 11:49] LABS: Cholesterol 189 mg/dL (<200); HDL Cholesterol 53 mg/dL (>40); LDL Cholesterol Calculated 97 mg/dL (<100); Triglycerides 198 mg/dL (<150)
[2024-10-07 12:07] LABS: Free T4 (Free Thyroxine) 1.03 ng/dL (0.71-1.85); Thyroid Stimulating Hormone 1.11 uIU/mL (0.32-4.0)
[2024-10-07 12:19] LABS: Folate 15.9 ng/mL (> or = 4.0); Vitamin B12 499 pg/mL (200-900)
[2024-10-07] MEDS: Magnesium Hydrox/Alum Hydrox 30 ML ORAL.SUSP PO (15:55)
[2024-10-07 20:00] VITALS: BP 125/73; PULSE 98; RESP 16; TEMP 36.7; O2SAT 98
[2024-10-07] MEDS: QUEtiapine Fumarate 50 MG TABLET PO (20:11)
[2024-10-07] MEDS: traZODone HCL 50 MG TABLET PO (20:11)
[2024-10-07] MEDS: hydrOXYzine HCL 25 MG TABLET PO (20:12)
[2024-10-08] MEDS: Acetaminophen 325 MG TABLET 650 MG PO ×2 (04:58→22:07)
[2024-10-08 08:00] VITALS: BP 95/51; PULSE 74; RESP 14; TEMP 36.7; O2SAT 94
[2024-10-08] MEDS: Nicotine Polacrilex Lozenge 4 MG LOZENGE BUCCAL ×4 (08:26→18:13)
[2024-10-08] MEDS: Thiamine HCL 100 MG TABLET PO (08:26)
[2024-10-08] MEDS: LORazepam 1 MG TABLET PO ×3 (09:40→21:56)
--- NOTE | 2024-10-08 10:06 | P.PNPSI_ITS ---
Subjective Subjective Date of Service: 10/08/24 Reason For Visit: Depression, ETOH Subjective Notes: Conditional Voluntary Interim History: Patient was seen and discussed in rounds today. Records and plans were reviewed. He is doing much better and not scoring much on his CIWA which I will discontinue and the corresponding Ativan orders and put him on Ativan 1 mg t.i.d. to be tapered daily/gradually. Eating and sleeping adequately. No complaints and he says he is feeling quite comfortable. Review of Systems Review of Systems Yes all other systems are reviewed and are negative Mental Status Exam Mental Status Exam Narrative: In today's visit he is alert, oriented and pleasant. Normal speech. Little eye contact. Affect is appropriate and constricted. No acute signs of psychosis but endorses mild AVH. Cognitively is grossly intact. Moves all limbs. No gait abnormalities. Judgment is intact Diagnostics Vital Signs (24Hr): Vital Signs - 24 hr 10/07/24 20:00 10/08/24 08:00 Temperature 98.1 F 98.0 F Pulse Rate 98 74 Respiratory Rate 16 14 Blood Pressure 125/73 95/51 L Pulse Oximetry 98 94 Oxygen Delivery Method Room Air Room Air BMI result Body Mass Index 32.4 Labs 10/06/24 15:41 Labs: Laboratory Results - last 48 hr 10/06/24 10/06/24 10/07/24 15:41 17:28 11:01 Random Glucose 82 Estimat Average Glucose 111 Hemoglobin A1c % 5.5 Triglycerides 198 H Cholesterol 189 LDL Cholesterol, Calc 97 HDL Cholesterol 53 Vitamin B12 499 Folate 15.9 TSH 1.11 Free T4 1.03 Urine Color Yellow Urine Appearance Clear Urine pH 6.5 Ur Specific [place] 1.025 Urine Protein Trace Urine Glucose (UA) Negative Urine Ketones Trace Urine Blood Trace H Urine Nitrite Negative Ur Leukocyte Esterase Negative Urine RBC 6-10 H Urine WBC 0-5 Ur Squamous Epith Cells 0-2 Urine Bacteria None Seen Hyaline Casts 0-2 Chlam trachomat DNA PCR NOT DETECTED N.gonorrhoeae DNA (PCR) NOT DETECTED Medications Medications Current Medications Acetaminophen (Acetaminophen 325 Mg Tablet) 650 mg PO Q6H PRN PRN Reason: Headache/Pain, Scale 1-10 Last Admin: 10/08/24 04:58 Dose: 650 mg Al Hydroxide/Mg Hydroxide (Magnesium Hydrox/Alum Hydrox 30 Ml Oral.Susp) 30 ml PO Q6H PRN PRN Reason: Heartburn/Nausea Last Admin: 10/07/24 15:55 Dose: 30 ml Hydroxyzine HCl (Hydroxyzine Hcl 25 Mg Tablet) 25 mg PO Q6H PRN PRN Reason: mild anxiety Last Admin: 10/07/24 20:12 Dose: 25 mg Lorazepam (Lorazepam 1 Mg Tablet) 1 mg PO TID [facility] Last Admin: 10/08/24 09:40 Dose: 1 mg Magnesium Hydroxide (Milk Of Magnesia 30 Ml Oral.Susp) 30 ml PO DAILY PRN PRN Reason: Constipation Nicotine Polacrilex (Nicotine Polacrilex Lozenge 4 Mg Lozenge) 4 mg BUCCAL Q1H PRN PRN Reason: Nicotine Cravings Last Admin: 10/08/24 09:48 Dose: 4 mg Quetiapine Fumarate (Quetiapine Fumarate 50 Mg Tablet) 50 mg PO BEDTIME [facility] Last Admin: 10/07/24 20:11 Dose: 50 mg Thiamine HCl (Thiamine Hcl 100 Mg Tablet) 100 mg PO DAILY [facility] Last Admin: 10/08/24 08:26 Dose: 100 mg Trazodone HCl (Trazodone Hcl 50 Mg Tablet) 50 mg PO BEDTIME MRX1 PRN PRN Reason: Insomnia Last Admin: 10/07/24 20:11 Dose: 50 mg Allergies Allergies Allergy/AdvReac Type Severity Reaction Status Date / Time No Known Allergies Allergy Verified 09/02/23 18:17 Assessment & Plan Assessment & Plan (1) Depression: Status: Acute Code(s): F32.A - Depression, unspecified (2) Alcohol use disorder: Status: Acute Code(s): F10.90 - Alcohol use, unspecified, uncomplicated Plan ativan per CIWA protocol for AUD. seroquel 50 QHS for paranoia and psychotic Sx. sleep study for presumed YAN Dx. referral for outpt services. 10/07: Continue current regimen and plans 10/08: Continue current regimen and plans. Discontinue CIWA. Put on Ativan taper Patient educated on: medication risk/benefits Reason for continued inpatient stay Substantial Risk for: med/psych decompensation Time Spent With Patient Time: Total time managing care of this patient today ____ minutes.
[2024-10-08] MEDS: hydrOXYzine HCL 25 MG TABLET PO (19:13)
[2024-10-08 21:54] VITALS: BP 130/80; PULSE 90; RESP 16; TEMP 36.6; O2SAT 97
[2024-10-08] MEDS: QUEtiapine Fumarate 50 MG TABLET PO (21:56)
[2024-10-08] MEDS: traZODone HCL 50 MG TABLET PO (21:56)
[2024-10-09 08:00] VITALS: BP 99/60; PULSE 78; RESP 16; TEMP 36.3; O2SAT 97
[2024-10-09] MEDS: Nicotine Polacrilex Lozenge 4 MG LOZENGE BUCCAL ×5 (08:40→22:44)
[2024-10-09] MEDS: Thiamine HCL 100 MG TABLET PO (08:40)
[2024-10-09] MEDS: LORazepam 1 MG TABLET PO ×2 (08:40→21:48)
--- NOTE | 2024-10-09 09:22 | HO.PSYCHPN ---
Subjective Subjective Date of Service: 10/09/24 Reason For Visit: Depression, ETOH Subjective Notes: Conditional Voluntary Interim History: Patient was seen and discussed in rounds today. Records and plans were reviewed. He has been stable and no longer showing signs of withdrawal. Ativan taper is being reduced to 1 mg b.i.d. and to be further reduced in the next few days. Questions about medications discussed. Availability of PRNs reviewed. Eating and sleeping adequately. No SI. Review of Systems Review of Systems Yes all other systems are reviewed and are negative Mental Status Exam Mental Status Exam Narrative: In today's visit he is alert, oriented and pleasant. Normal speech. Little eye contact. Affect is appropriate and constricted. No acute signs of psychosis but endorses mild AVH. Cognitively is grossly intact. Moves all limbs. No gait abnormalities. Judgment is intact Diagnostics Vital Signs (24Hr): Vital Signs - 24 hr 10/08/24 21:54 10/09/24 08:00 Temperature 97.8 F 97.3 F Pulse Rate 90 78 Respiratory Rate 16 16 Blood Pressure 130/80 99/60 Pulse Oximetry 97 97 Oxygen Delivery Method Room Air Room Air BMI result Body Mass Index 32.4 Labs 10/06/24 15:41 Labs: Laboratory Results - last 48 hr 10/07/24 11:01 Estimat Average Glucose 111 Hemoglobin A1c % 5.5 Triglycerides 198 H Cholesterol 189 LDL Cholesterol, Calc 97 HDL Cholesterol 53 Vitamin B12 499 Folate 15.9 TSH 1.11 Free T4 1.03 Medications Medications Current Medications Acetaminophen (Acetaminophen 325 Mg Tablet) 650 mg PO Q6H PRN PRN Reason: Headache/Pain, Scale 1-10 Last Admin: 10/08/24 22:07 Dose: 650 mg Al Hydroxide/Mg Hydroxide (Magnesium Hydrox/Alum Hydrox 30 Ml Oral.Susp) 30 ml PO Q6H PRN PRN Reason: Heartburn/Nausea Last Admin: 10/07/24 15:55 Dose: 30 ml Hydroxyzine HCl (Hydroxyzine Hcl 25 Mg Tablet) 25 mg PO Q6H PRN PRN Reason: mild anxiety Last Admin: 10/08/24 19:13 Dose: 25 mg Lorazepam (Lorazepam 1 Mg Tablet) 1 mg PO TID JOSE DE JESUS Last Admin: 10/09/24 08:40 Dose: 1 mg Magnesium Hydroxide (Milk Of Magnesia 30 Ml Oral.Susp) 30 ml PO DAILY PRN PRN Reason: Constipation Nicotine Polacrilex (Nicotine Polacrilex Lozenge 4 Mg Lozenge) 4 mg BUCCAL Q1H PRN PRN Reason: Nicotine Cravings Last Admin: 10/09/24 08:40 Dose: 4 mg Quetiapine Fumarate (Quetiapine Fumarate 50 Mg Tablet) 50 mg PO BEDTIME JOSE DE JESUS Last Admin: 10/08/24 21:56 Dose: 50 mg Thiamine HCl (Thiamine Hcl 100 Mg Tablet) 100 mg PO DAILY JOSE DE JESUS Last Admin: 10/09/24 08:40 Dose: 100 mg Trazodone HCl (Trazodone Hcl 50 Mg Tablet) 50 mg PO BEDTIME MRX1 PRN PRN Reason: Insomnia Last Admin: 10/08/24 21:56 Dose: 50 mg Allergies Allergies Allergy/AdvReac Type Severity Reaction Status Date / Time No Known Allergies Allergy Verified 09/02/23 18:17 Assessment & Plan Assessment & Plan (1) Depression: Status: Acute Code(s): F32.A - Depression, unspecified (2) Alcohol use disorder: Status: Acute Code(s): F10.90 - Alcohol use, unspecified, uncomplicated Plan ativan per [facility]WA protocol for AUD. seroquel 50 QHS for paranoia and psychotic Sx. sleep study for presumed YAN Dx. referral for outpt services. 10/07: Continue current regimen and plans 10/08: Continue current regimen and plans. Discontinue CIWA. Put on Ativan taper 10/09: Continue current regimen and plans. Reduced Ativan taper to 1 mg b.i.d. Reason for continued inpatient stay Substantial Risk for: med/psych decompensation Time Spent With Patient Time: Total time managing care of this patient today ____ minutes.
[2024-10-09] MEDS: hydrOXYzine HCL 25 MG TABLET PO ×2 (11:42→19:02)
[2024-10-09] MEDS: Escitalopram Oxalate 10 MG TABLET PO (12:30)
[2024-10-09 20:00] VITALS: BP 153/89; PULSE 80; RESP 18; TEMP 36.3; O2SAT 98
[2024-10-09] MEDS: traZODone HCL 50 MG TABLET PO (21:48)
[2024-10-09] MEDS: QUEtiapine Fumarate 50 MG TABLET PO (21:48)
[2024-10-10] MEDS: QUEtiapine Fumarate 25 MG TABLET PO ×2 (07:22→18:10)
[2024-10-10 08:00] VITALS: BP 144/75; PULSE 83; RESP 16; TEMP 36.2; O2SAT 95
[2024-10-10] MEDS: Thiamine HCL 100 MG TABLET PO (08:47)
[2024-10-10] MEDS: Escitalopram Oxalate 10 MG TABLET PO (08:47)
[2024-10-10] MEDS: Naltrexone HCl 50 MG TABLET PO (08:47)
[2024-10-10] MEDS: LORazepam 1 MG TABLET PO (08:47)
[2024-10-10] MEDS: Nicotine Polacrilex Lozenge 4 MG LOZENGE BUCCAL ×4 (09:08→20:52)
[2024-10-10] MEDS: hydrOXYzine HCL 25 MG TABLET PO ×2 (15:05→20:52)
--- NOTE | 2024-10-10 15:10 | PC.NURSE ---
Pt reported my hands started shaking all of a sudden and I'm really anxious. BP 130/75 HR 81, O2 96% pt requested and received PRN Atarax for anxiety.
--- NOTE | 2024-10-10 17:39 | P.PNPSI_ITS ---
Subjective Subjective Date of Service: 10/10/24 Reason For Visit: Depression, ETOH Interim History: not feeling very well. concerned about his snoring and almost getting into a fight bcse someone didn't like his snoring. states he would feel better if in his own room. otherwise anxious, asking for discharge. informed sleep study tonight. per staff, slept 8 hours. +dep/anx/alcohol. vague SI. ativan taper underway. considering [facility]. Mental Status Exam Mental Status Exam Narrative: In today's visit he is alert, oriented and pleasant. Normal speech. Little eye contact. Affect is appropriate and constricted. No acute signs of psychosis. Cognitively is grossly intact. Moves all limbs. No gait abnormalities. Judgment is intact Diagnostics Vital Signs (24Hr): Vital Signs - 24 hr 10/09/24 20:00 10/10/24 08:00 Temperature 97.4 F 97.2 F Pulse Rate 80 83 Respiratory Rate 18 16 Blood Pressure 153/89 H 144/75 H Pulse Oximetry 98 95 Oxygen Delivery Method Room Air Room Air BMI result Body Mass Index 32.4 Labs 10/06/24 15:41 Medications Medications Current Medications Acetaminophen (Acetaminophen 325 Mg Tablet) 650 mg PO Q6H PRN PRN Reason: Headache/Pain, Scale 1-10 Last Admin: 10/08/24 22:07 Dose: 650 mg Al Hydroxide/Mg Hydroxide (Magnesium Hydrox/Alum Hydrox 30 Ml Oral.Susp) 30 ml PO Q6H PRN PRN Reason: Heartburn/Nausea Last Admin: 10/07/24 15:55 Dose: 30 ml Escitalopram Oxalate (Escitalopram Oxalate 10 Mg Tablet) 10 mg PO DAILY [facility] Last Admin: 10/10/24 08:47 Dose: 10 mg Hydroxyzine HCl (Hydroxyzine Hcl 25 Mg Tablet) 25 mg PO Q6H PRN PRN Reason: mild anxiety Last Admin: 10/10/24 15:05 Dose: 25 mg Lorazepam (Lorazepam 0.5 Mg Tablet) 0.5 mg PO BID [facility] Magnesium Hydroxide (Milk Of Magnesia 30 Ml Oral.Susp) 30 ml PO DAILY PRN PRN Reason: Constipation Naltrexone HCl (Naltrexone Hcl 50 Mg Tablet) 50 mg PO DAILY [facility] Last Admin: 10/10/24 08:47 Dose: 50 mg Nicotine Polacrilex (Nicotine Polacrilex Lozenge 4 Mg Lozenge) 4 mg BUCCAL Q1H PRN PRN Reason: Nicotine Cravings Last Admin: 10/10/24 14:35 Dose: 4 mg Quetiapine Fumarate (Quetiapine Fumarate 50 Mg Tablet) 50 mg PO BEDTIME JOSE DE JESUS Last Admin: 10/09/24 21:48 Dose: 50 mg Quetiapine Fumarate (Quetiapine Fumarate 25 Mg Tablet) 25 mg PO BID PRN PRN Reason: Anxiety Last Admin: 10/10/24 07:22 Dose: 25 mg Thiamine HCl (Thiamine Hcl 100 Mg Tablet) 100 mg PO DAILY JOSE DE JESUS Last Admin: 10/10/24 08:47 Dose: 100 mg Trazodone HCl (Trazodone Hcl 50 Mg Tablet) 50 mg PO BEDTIME MRX1 PRN PRN Reason: Insomnia Last Admin: 10/09/24 21:48 Dose: 50 mg Allergies Allergies Allergy/AdvReac Type Severity Reaction Status Date / Time No Known Allergies Allergy Verified 09/02/23 18:17 Assessment & Plan Assessment & Plan (1) Depression: Status: Acute Code(s): F32.A - Depression, unspecified (2) Alcohol use disorder: Status: Acute Code(s): F10.90 - Alcohol use, unspecified, uncomplicated Plan 10/06: ativan per [facility] protocol for AUD. seroquel 50 QHS for paranoia and psychotic Sx. sleep study for presumed YAN Dx. referral for outpt services. 10/07: Continue current regimen and plans 10/08: Continue current regimen and plans. Discontinue CIWA. Put on Ativan taper 10/09: Continue current regimen and plans. Reduced Ativan taper to 1 mg b.i.d. 10/10: sleep study scheduled for [facility]. anxious on unit due to peer aggression toward him for snoring. ambivalent about [facility] due to fear of being around others. Reason for continued inpatient stay Substantial Risk for: inability to function and rapid decompensation Time Spent With Patient Time: Total time managing care of this patient today __25__ minutes.
[2024-10-10 20:00] VITALS: BP 134/73; PULSE 65; RESP 16; TEMP 36.6; O2SAT 100
[2024-10-10] MEDS: QUEtiapine Fumarate 50 MG TABLET PO (20:52)
[2024-10-10] MEDS: traZODone HCL 50 MG TABLET PO (20:52)
[2024-10-10] MEDS: LORazepam 0.5 MG TABLET PO (20:52)
[2024-10-11 07:47] VITALS: BP 116/65; PULSE 64; RESP 16; TEMP 36.5; O2SAT 96
[2024-10-11] MEDS: Naltrexone HCl 50 MG TABLET PO (08:24)
[2024-10-11] MEDS: Thiamine HCL 100 MG TABLET PO (08:24)
[2024-10-11] MEDS: Escitalopram Oxalate 10 MG TABLET PO (08:24)
[2024-10-11] MEDS: LORazepam 0.5 MG TABLET PO ×2 (08:25→20:52)
[2024-10-11] MEDS: Nicotine Polacrilex Lozenge 4 MG LOZENGE BUCCAL ×5 (08:36→23:07)
--- NOTE | 2024-10-11 09:14 | P.PNPSI_ITS ---
Subjective Subjective Date of Service: 10/11/24 Reason For Visit: Depression, ETOH Subjective Notes: Conditional Voluntary Interim History: Patient reports feeling anxious today; continues worried about his snoring at night. Requesting increase in Seroquel. Dose increased to 75mg PO bedtime. Decreased Ativan to 0.5mg PO daily. denies SI/HI/VH/AH. Pt reports he does not want to to go a program after discharge d/t not wanting to sleep around people ; states he is considering going to a snf. Planning for discharge on Wednesday. Medication Compliance: Yes Side effects from medications: No Mental Status Exam Mental Status Exam Narrative: Pt is alert and oriented; behavior is cooperative, calm; dressed in casual attire; mood is described as anxious ; eye contact appropriate; Speech is normal rate, volume and not pressured; thought process is organized; Thought content is on discharge; denies SI/HI/VH/AH. Diagnostics Vital Signs (24Hr): Vital Signs - 24 hr 10/10/24 20:00 10/11/24 07:47 Temperature 97.8 F 97.7 F Pulse Rate 65 64 Respiratory Rate 16 16 Blood Pressure 134/73 116/65 Pulse Oximetry 100 96 Oxygen Delivery Method Room Air Room Air BMI result Body Mass Index 32.4 Labs 10/06/24 15:41 Medications Medications Current Medications Acetaminophen (Acetaminophen 325 Mg Tablet) 650 mg PO Q6H PRN PRN Reason: Headache/Pain, Scale 1-10 Last Admin: 10/08/24 22:07 Dose: 650 mg Al Hydroxide/Mg Hydroxide (Magnesium Hydrox/Alum Hydrox 30 Ml Oral.Susp) 30 ml PO Q6H PRN PRN Reason: Heartburn/Nausea Last Admin: 10/07/24 15:55 Dose: 30 ml Escitalopram Oxalate (Escitalopram Oxalate 10 Mg Tablet) 10 mg PO DAILY [facility] Last Admin: 10/11/24 08:24 Dose: 10 mg Hydroxyzine HCl (Hydroxyzine Hcl 25 Mg Tablet) 25 mg PO Q6H PRN PRN Reason: mild anxiety Last Admin: 10/10/24 20:52 Dose: 25 mg Lorazepam (Lorazepam 0.5 Mg Tablet) 0.5 mg PO BID JOSE DE JESUS Last Admin: 10/11/24 08:25 Dose: 0.5 mg Magnesium Hydroxide (Milk Of Magnesia 30 Ml Oral.Susp) 30 ml PO DAILY PRN PRN Reason: Constipation Naltrexone HCl (Naltrexone Hcl 50 Mg Tablet) 50 mg PO DAILY [facility] Last Admin: 10/11/24 08:24 Dose: 50 mg Nicotine Polacrilex (Nicotine Polacrilex Lozenge 4 Mg Lozenge) 4 mg BUCCAL Q1H PRN PRN Reason: Nicotine Cravings Last Admin: 10/11/24 08:36 Dose: 4 mg Quetiapine Fumarate (Quetiapine Fumarate 50 Mg Tablet) 50 mg PO BEDTIME [facility] Last Admin: 10/10/24 20:52 Dose: 50 mg Quetiapine Fumarate (Quetiapine Fumarate 25 Mg Tablet) 25 mg PO BID PRN PRN Reason: Anxiety Last Admin: 10/10/24 18:10 Dose: 25 mg Thiamine HCl (Thiamine Hcl 100 Mg Tablet) 100 mg PO DAILY [facility] Last Admin: 10/11/24 08:24 Dose: 100 mg Trazodone HCl (Trazodone Hcl 50 Mg Tablet) 50 mg PO BEDTIME MRX1 PRN PRN Reason: Insomnia Last Admin: 10/10/24 20:52 Dose: 50 mg Allergies Allergies Allergy/AdvReac Type Severity Reaction Status Date / Time No Known Allergies Allergy Verified 09/02/23 18:17 Assessment & Plan Assessment & Plan (1) Depression: Status: Acute Code(s): F32.A - Depression, unspecified (2) Alcohol use disorder: Status: Acute Code(s): F10.90 - Alcohol use, unspecified, uncomplicated Plan 10/06: ativan per [facility] protocol for AUD. seroquel 50 QHS for paranoia and psychotic Sx. sleep study for presumed YAN Dx. referral for outpt services. 10/07: Continue current regimen and plans 10/08: Continue current regimen and plans. Discontinue CIWA. Put on Ativan taper 10/09: Continue current regimen and plans. Reduced Ativan taper to 1 mg b.i.d. 10/10: sleep study scheduled for [facility]. anxious on unit due to peer aggression toward him for snoring. ambivalent about [facility] due to fear of being around others. 10/11: Patient reports feeling anxious today; continues worried about his snoring at night. Requesting increase in Seroquel. Dose increased to 75mg PO bedtime. Decreased Ativan to 0.5mg PO daily. denies SI/HI/VH/AH. Pt reports he does not want to to go a program after discharge d/t not wanting to sleep around people ; states he is considering going to a snf. Planning for discharge on Wednesday. Per nursing, sleep study not done d/t respiratory stating it must be done outpatient. Patient educated on: diagnosis and medication risk/benefits Reason for continued inpatient stay Substantial Risk for: med/psych decompensation Time Spent With Patient Time: Total time managing care of this patient today _20___ minutes.
[2024-10-11] MEDS: QUEtiapine Fumarate 25 MG TABLET PO (09:40)
[2024-10-11] MEDS: hydrOXYzine HCL 25 MG TABLET PO (14:32)
[2024-10-11 20:00] VITALS: BP 122/60; PULSE 65; RESP 16; TEMP 36.4; O2SAT 98
[2024-10-11] MEDS: traZODone HCL 50 MG TABLET PO ×2 (20:52→23:07)
[2024-10-11] MEDS: QUEtiapine Fumarate 25 MG TABLET 75 MG PO (20:52)
[2024-10-12 07:00] VITALS: BMI 33.0
[2024-10-12 07:55] VITALS: BP 109/53; PULSE 63; RESP 16; TEMP 36.3; O2SAT 98
[2024-10-12] MEDS: LORazepam 0.5 MG TABLET PO (08:49)
[2024-10-12] MEDS: Thiamine HCL 100 MG TABLET PO (08:49)
[2024-10-12] MEDS: Naltrexone HCl 50 MG TABLET PO (08:49)
[2024-10-12] MEDS: Escitalopram Oxalate 10 MG TABLET PO (08:49)
[2024-10-12] MEDS: Nicotine Polacrilex Lozenge 4 MG LOZENGE BUCCAL ×4 (09:28→17:36)
--- NOTE | 2024-10-12 10:17 | HO.PSYCHPN ---
Subjective Subjective Date of Service: 10/12/24 Reason For Visit: Depression, ETOH Subjective Notes: Conditional Voluntary Interim History: Active on unit. Patient reports feeling good and ready to leave ; pt stated, I'm going to stay with my friend when I leave here. I'm going to stay strong and not drink . Pt reports he is focused on his sobriety. denies SI/HI/VH/AH. He plans on following up with his outpatient providers. Medication Compliance: Yes Side effects from medications: No Attending Groups: No Mental Status Exam Mental Status Exam Narrative: Pt is alert and oriented; behavior is cooperative, calm; dressed in casual attire; mood is described as good ; eye contact appropriate; Speech is normal rate, volume and not pressured; thought process is organized; Thought content is on discharge; denies SI/HI/VH/AH. Diagnostics Vital Signs (24Hr): Vital Signs - 24 hr 10/11/24 20:00 10/12/24 07:55 Temperature 97.6 F 97.3 F Pulse Rate 65 63 Respiratory Rate 16 16 Blood Pressure 122/60 109/53 L Pulse Oximetry 98 98 Oxygen Delivery Method Room Air Room Air BMI result Body Mass Index 32.4 Labs 10/06/24 15:41 Medications Medications Current Medications Acetaminophen (Acetaminophen 325 Mg Tablet) 650 mg PO Q6H PRN PRN Reason: Headache/Pain, Scale 1-10 Last Admin: 10/08/24 22:07 Dose: 650 mg Al Hydroxide/Mg Hydroxide (Magnesium Hydrox/Alum Hydrox 30 Ml Oral.Susp) 30 ml PO Q6H PRN PRN Reason: Heartburn/Nausea Last Admin: 10/07/24 15:55 Dose: 30 ml Escitalopram Oxalate (Escitalopram Oxalate 10 Mg Tablet) 10 mg PO DAILY [facility] Last Admin: 10/12/24 08:49 Dose: 10 mg Hydroxyzine HCl (Hydroxyzine Hcl 25 Mg Tablet) 25 mg PO Q6H PRN PRN Reason: mild anxiety Last Admin: 10/11/24 14:32 Dose: 25 mg Lorazepam (Lorazepam 0.5 Mg Tablet) 0.5 mg PO DAILY [facility] Last Admin: 10/12/24 08:49 Dose: 0.5 mg Magnesium Hydroxide (Milk Of Magnesia 30 Ml Oral.Susp) 30 ml PO DAILY PRN PRN Reason: Constipation Naltrexone HCl (Naltrexone Hcl 50 Mg Tablet) 50 mg PO DAILY [facility] Last Admin: 10/12/24 08:49 Dose: 50 mg Nicotine Polacrilex (Nicotine Polacrilex Lozenge 4 Mg Lozenge) 4 mg BUCCAL Q1H PRN PRN Reason: Nicotine Cravings Last Admin: 10/12/24 09:28 Dose: 4 mg Quetiapine Fumarate (Quetiapine Fumarate 25 Mg Tablet) 25 mg PO BID PRN PRN Reason: Anxiety Last Admin: 10/11/24 09:40 Dose: 25 mg Quetiapine Fumarate (Quetiapine Fumarate 25 Mg Tablet) 75 mg PO BEDTIME [facility] Last Admin: 10/11/24 20:52 Dose: 75 mg Thiamine HCl (Thiamine Hcl 100 Mg Tablet) 100 mg PO DAILY [facility] Last Admin: 10/12/24 08:49 Dose: 100 mg Trazodone HCl (Trazodone Hcl 50 Mg Tablet) 50 mg PO BEDTIME MRX1 PRN PRN Reason: Insomnia Last Admin: 10/11/24 23:07 Dose: 50 mg Allergies Allergies Allergy/AdvReac Type Severity Reaction Status Date / Time No Known Allergies Allergy Verified 09/02/23 18:17 Assessment & Plan Assessment & Plan (1) Depression: Status: Acute Code(s): F32.A - Depression, unspecified (2) Alcohol use disorder: Status: Acute Code(s): F10.90 - Alcohol use, unspecified, uncomplicated Plan 10/06: ativan per [facility] protocol for AUD. seroquel 50 QHS for paranoia and psychotic Sx. sleep study for presumed YAN Dx. referral for outpt services. 10/07: Continue current regimen and plans 10/08: Continue current regimen and plans. Discontinue CIWA. Put on Ativan taper 10/09: Continue current regimen and plans. Reduced Ativan taper to 1 mg b.i.d. 10/10: sleep study scheduled for [facility]. anxious on unit due to peer aggression toward him for snoring. ambivalent about [facility] due to fear of being around others. 10/11: Patient reports feeling anxious today; continues worried about his snoring at night. Requesting increase in Seroquel. Dose increased to 75mg PO bedtime. Decreased Ativan to 0.5mg PO daily. denies SI/HI/VH/AH. Pt reports he does not want to to go a program after discharge d/t not wanting to sleep around people ; states he is considering going to a intermediate. Planning for discharge on Wednesday. Per nursing, sleep study not done d/t respiratory stating it must be done outpatient. 10/12: Active on unit. Patient reports feeling good and ready to leave ; pt stated, I'm going to stay with my friend when I leave here. I'm going to stay strong and not drink . Pt reports he is focused on his sobriety. denies SI/HI/VH/AH. He plans on following up with his outpatient providers. Patient educated on: diagnosis and medication risk/benefits Reason for continued inpatient stay Substantial Risk for: stable for discharge Time Spent With Patient Time: Total time managing care of this patient today _20___ minutes.
[2024-10-12] MEDS: QUEtiapine Fumarate 25 MG TABLET PO (11:01)
[2024-10-12] MEDS: hydrOXYzine HCL 25 MG TABLET PO ×2 (11:01→20:47)
[2024-10-12 20:43] VITALS: BP 164/85; PULSE 70; RESP 18; TEMP 36.4; O2SAT 98
[2024-10-12] MEDS: traZODone HCL 50 MG TABLET PO (20:47)
[2024-10-12] MEDS: QUEtiapine Fumarate 25 MG TABLET 75 MG PO (20:47)
[2024-10-13 07:05] VITALS: BP 102/65; PULSE 66; RESP 14; TEMP 36.3; O2SAT 97
[2024-10-13] MEDS: Nicotine Polacrilex Lozenge 4 MG LOZENGE BUCCAL (07:26)
[2024-10-13] MEDS: Thiamine HCL 100 MG TABLET PO (09:00)
[2024-10-13] MEDS: LORazepam 0.5 MG TABLET PO (09:00)
[2024-10-13] MEDS: Naltrexone HCl 50 MG TABLET PO (09:01)
[2024-10-13] MEDS: Escitalopram Oxalate 10 MG TABLET PO (09:01)
--- NOTE | 2024-10-13 11:57 | P.DS_ITS ---
DS: Providers Provider Date of Service: 10/13/24 Date of admission: 10/06/24 12:24 Date of discharge: 10/13/24 Primary care physician: Unknown Physician Attending physician on admission: Saul Villasenor Consults: 10/06/24 12:51 Consult to Hospitalist Routine Comment: Consulting Provider: [facility] Reason For Exam: OSH admission 10/06/24 14:31 Addiction Medicine Routine Consulting Provider: Addiction Covering Reason for consultation: alcohol use disorder Attending physician on discharge: Asim Celis Discharging clinician: Julianne Centeno DS: Diagnosis Discharge Diagnosis (1) Depression: Status: Acute (2) Alcohol use disorder: Status: Acute DS: Medications Discharge Medications Home Medications: Previous Rx's ?Medication ?Instructions ?Recorded escitalopram oxalate 10 mg tablet 10 mg PO DAILY 30 days #30 tabs 10/12/24 hydroxyzine HCl 25 mg tablet 25 mg PO BID PRN anxiety 30 days 10/12/24 #60 tabs naltrexone 50 mg tablet 50 mg PO DAILY 30 days #30 tabs 10/12/24 quetiapine 25 mg tablet 75 mg (3 x 25 mg) PO BEDTIME 14 10/12/24 days #42 tabs Mental Status Exam Mental Status Exam Narrative: Pt is alert and oriented; behavior is cooperative, calm; dressed in casual attire; mood is described as good ; eye contact appropriate; Speech is normal rate, volume and not pressured; thought process is organized; Thought content is on discharge; denies SI/HI/VH/AH. Data Data Completed and Pending Completed studies during hospitalization [Text1]: 10/06/24 10/06/24 10/07/24 15:41 17:28 11:01 Random Glucose 82 Estimat Average Glucose 111 Hemoglobin A1c % 5.5 Triglycerides 198 H Cholesterol 189 LDL Cholesterol, Calc 97 HDL Cholesterol 53 Vitamin B12 499 Folate 15.9 TSH 1.11 Free T4 1.03 Urine Color Yellow Urine Appearance Clear Urine pH 6.5 Ur Specific Grants 1.025 Urine Protein Trace Urine Glucose (UA) Negative Urine Ketones Trace Urine Blood Trace H Urine Nitrite Negative Ur Leukocyte Esterase Negative Urine RBC 6-10 H Urine WBC 0-5 Ur Squamous Epith Cells 0-2 Urine Bacteria None Seen Hyaline Casts 0-2 Chlam trachomat DNA PCR NOT DETECTED N.gonorrhoeae DNA (PCR) NOT DETECTED 10/06/24 17:28 Urine clean catch - Clean Catch Midstream Urine Culture - Final DS: Summary Hospital Course Hospital Course: per [facility] ED notes, pt self-presented with c/o EtOH use and SI. no plan or intent. actively abusing alcohol. frustrated he has been unable to obtain his cert from [place] and therefore has been unable to get a job here. per crisis eval, pt is homeless. he c/o harboring a lot of hatred and feeling people are evil. he endorsed both HI and SI with plan to overdose. HI were re [place] witches. also reported conflict with his partner and feeling judged for an alcoholic. reported not having taken meds in more than a month. on interview with MD, pt is pleasant anc cooperative. he is brighter than expected, affect-mantilla. he reports his goal of hospitalization is to speak with a counselor. his expectations are adjusted. he identifies as target Sx paranoia and anxiety. pt is educated re ativan per [facility] protocol. medications for psychotic Sx discussed, pt agrees to restart seroquel at 50 mg at HS. reports snoring, agrees to sleep study for R/O YAN. further medications for mood and anxiety deferred until detox further underway and seroquel dosing established. ativan per [facility]WA protocol for AUD. seroquel 50 QHS for paranoia and psychotic Sx. sleep study for presumed YAN Dx. referral for outpt services. Discontinue CIWA. Put on Ativan taper Reduced Ativan taper to 1 mg b.i.d. sleep study scheduled for [facility]. anxious on unit due to peer aggression toward him for snoring. ambivalent about [facility] due to fear of being around others. Patient reports feeling anxious today; continues worried about his snoring at night. Requesting increase in Seroquel. Dose increased to 75mg PO bedtime. Decreased Ativan to 0.5mg PO daily. denies SI/HI/VH/AH. Pt reports he does not want to to go a program after discharge d/t not wanting to sleep around people ; states he is considering going to a group home. Planning for discharge on Wednesday. Per nursing, sleep study not done d/t respiratory stating it must be done outpatient. Active on unit. Patient reports feeling good and ready to leave ; pt stated, I'm going to stay with my friend when I leave here. I'm going to stay strong and not drink . Pt reports he is focused on his sobriety. denies SI/HI/VH/AH. He plans on following up with his outpatient providers. Status at Discharge Cognitive/behavioral status at discharge: Patient has insight and demonstrates good judgment in terms of wanting to pursue treatment. Patient has a safety plan that includes presenting to the closest ER or calling 911 if feeling unsafe. Functional status at discharge: independent ambulation Overall status at discharge: patient is back to baseline Time Spent with Patient Time attestation: Total time managing care of this patient today _20___ minutes. Time spent: Less than 30 minutes Discharge Plan Discharge Anticipated Discharge Date/Time: 10/13/24 11:00 Patient Disposition: Home, Self-Care Discharge Diagnosis: MDD, Alcohol use d/o Referrals: Therapy & Psychiatry [Other] - 10/14/24 10:00 am (This will be a two hour appointment. ) [facility] [Provider Group] - 1 Week (10-11-24 Your primary care physician has been notified of your upcoming discharge and will contact either you or us with your follow up appt information. fax [phone]) Discharge Medications: New quetiapine 25 mg Tablet 75 mg PO BEDTIME 14 Days Qty: 42 1RF naltrexone 50 mg Tablet 50 mg PO DAILY 30 Days Qty: 30 0RF escitalopram oxalate 10 mg Tablet 10 mg PO DAILY 30 Days Qty: 30 0RF hydroxyzine HCl 25 mg Tablet 25 mg PO BID PRN (Reason: anxiety) 30 Days Qty: 60 0RF Discharge Orders: Discharge Order (Routine); Ordered 10/13/24 Ordered By: Julianne Centeno Diet: Regular diet Activity on Discharge: As tolerated Stand Alone Forms: Patient Portal Discharge page, Community Support Print Language: Guamanian Care Plan Goals: Maintain mood and safe behaviors Take medications as prescribed Continue to pursue sobriety Practice coping skills Continue with outpatient providers and reach out to them as needed Health Concerns: Mood stability and behaviors Sobriety Plan of Treatment: Follow up with your PCP, psychiatric provider and other outpatient providers regarding above concerns Take medications as prescribed Assessment: Patient has insight and demonstrates good judgment in terms of wanting to pursue treatment. Patient has a safety plan that includes presenting to the closest ER or calling 911 if feeling unsafe. Discharge Date/Time: 10/13/24 10:10
== END 2024-10-13 10:10 | disposition home or self-care (01) | DRG 754 ==
PROVIDERS: Family Medicine; Admitting Provider Psychiatry & Neurology Psychiatry; Visit Provider Psychiatry & Neurology Psychiatry
DX: F32.9 Major depressive disorder, single episode, unspecified (principal); R45.851 Suicidal ideations; E78.5 Hyperlipidemia, unspecified; F10.90 Alcohol use, unspecified, uncomplicated; F17.210 Nicotine dependence, cigarettes, uncomplicated; Z71.6 Tobacco abuse counseling; Z79.899 Other long term (current) drug therapy
CPT/HCPCS: 36415; 80061; 81001; 82607; 82746; 82947; 83036; 84439; 84443; 87086; 87491; 87591; S9485

== ENCOUNTER → 2024-10-06 12:24 | Outpatient (BNV) | payer OTHER, SELFPAY | PROVIDERS: Admitting Provider Psychiatry & Neurology Psychiatry; Visit Provider Psychiatry & Neurology Psychiatry | DX: F32.2 Major depressive disorder, single episode, severe without psychotic features (principal); F10.90 Alcohol use, unspecified, uncomplicated | CPT/HCPCS: 99231; 99232; 99233 ==

== ENCOUNTER → 2024-10-06 12:24 | Outpatient (BNV) | payer MEDICAID, SELFPAY | PROVIDERS: Admitting Provider Psychiatry & Neurology Psychiatry; Visit Provider Family Medicine | DX: E78.5 Hyperlipidemia, unspecified (principal); R39.15 Urgency of urination | CPT/HCPCS: 99222 ==